=== PATIENT | female | born 1960 | race Two or more races ===

== ENCOUNTER 2016-10-16 21:11 | Emergency (ER) | payer OTHER ==
[2016-10-16] MEDS ORDERED: ALBUTEROL SO4 0.083% IH SOL 2.5 MG/3 ML VIAL.NEB. NEB ONE (21:24)
[2016-10-16 21:25] VITALS: BP 152/80; PULSE 84; TEMP 98.3; BMI 39.1
[2016-10-16] MEDS ORDERED: predniSONE 20 MG TABLET (UD) PO ONE (21:36)
--- NOTE | 2016-10-16 21:41 | PDOC ---
History of Present Illness - General Chief Complaint: Cold Symptoms Stated Complaint: SHORTNESS OF BREATH Time Seen by Provider: 10/16/16 21:21 History Source: Patient - History of Present Illness Timing/Duration: reports: other Associated Symptoms: reports: cough, shortness of breath, wheezing Past History - Past Medical History Allergies/Adverse Reactions: Allergies Allergy/AdvReac Type Severity Reaction Status Date / Time latex Allergy Severe Rash Verified 10/16/16 21:23 Home Medications: Ambulatory Orders Escitalopram Oxalate [Lexapro -] 20 mg PO HS 09/05/11 Montelukast Sodium [Singulair] 10 mg PO DAILY 09/05/11 Amlodipine Besylate [Norvasc -] 10 mg PO DAILY 11/06/13 Losartan Potassium 50 mg PO DAILY 11/06/13 Levothyroxine [Synthroid -] 200 mcg PO DAILY 09/29/15 Acetaminophen [Tylenol .Regular Strength -] 650 mg PO Q4H PRN #0 tablet Diphenhydramine HCl [Benadryl Capsule -] 25 mg PO Q6H PRN #0 capsule 01/26/16 Ibuprofen [Motrin -] 800 mg PO Q8H PRN #180 tablet 01/26/16 Levothyroxine [Synthroid -] 25 mcg PO DAILY@0700 #30 tablet 01/26/16 Levothyroxine [Synthroid -] 200 mcg PO DAILY@0700 #30 tablet 01/26/16 Prednisone [Deltasone -] 40 mg PO DAILY #8 tablet 10/16/16 Anemia: Yes Asthma: Yes Cancer: (thyroid) Cardiac Disorders: No CVA: No CHF: No Dementia: No Diabetes: No GI Disorders: Yes (REFLUX RESOLVED 8 YRS AGO) Disorders: No HTN: Yes Hypercholesterolemia: No Liver Disease: No Seizures: No Thyroid Disease: Yes (THYROIDECTOMY) - Surgical History Cholecystectomy: Yes (11/30/2015) - Immunization History Immunization Up to Date: Yes () - Psycho/Social/Smoking Cessation Hx Anxiety: No Suicidal Ideation: No Smoking Status: No Smoking History: Never smoked Have you smoked in the past 12 months: No Number of Cigarettes Smoked Daily: 0 Hx Alcohol Use: No Drug/Substance Use Hx: No Substance Use Type: Alcohol Review of Systems - Review of Systems Constitutional: No: Fever Respiratory: Yes: Cough, Shortness of Breath, Wheezing *Physical Exam - Vital Signs Last Vital Signs Temp Pulse Resp BP Pulse Ox 98.3 F 84 18 152/80 94 L 10/16/16 21:23 10/16/16 21:23 10/16/16 21:23 10/16/16 21:23 10/16/16 21:23 - Physical Exam General Appearance: Yes: Appropriately Dressed. No: Apparent Distress HEENT: positive: Normal Voice Neck: positive: Supple. negative: Lymphadenopathy (R), Lymphadenopathy (L) Respiratory/Chest: positive: Wheezing Cardiovascular: positive: Regular Rate, S1, S2 Extremity: positive: Normal Inspection Integumentary: positive: Dry, Warm Neurologic: positive: Fully Oriented, Alert, Normal Mood/Affect Medical Decision Making - Medical Decision Making 10/16/16 21:38 56-year-old female, history of HTN and asthma with no recent admissions and no history of intubations, on advair, albuterol pump and nebulizer machine at home , presenting with non-productive cough with subjective fevers and body aches that started 5 days ago and at some point, developed shortness of breath and chest tightness similar to her asthma. No h/o PNA see exam Asthma flare Sating 94% on RA w/ audible wheezing at triage as per RME notes -nebs until improves -pred -cxr r/o pna 10/16/16 21:55 10/16/16 22:25 CXR negative. Nebs in progress. Flu swab pending 10/16/16 23:17 Flu swab negative. Patient improved with nebs w/ clear chest/lungs on reassessment. Patient able to ambulate without shortness of breath. Repeat saturation done by me and was 97% on room air. Dc with Pred burst and PMD follow-up as needed *DC/Admit/Observation/Transfer Diagnosis at time of Disposition: Asthma flare - Discharge Dispostion Disposition: HOME Condition at time of disposition: Improved - Prescriptions Prescriptions: Prednisone [Deltasone -] 40 mg PO DAILY #8 tablet - Referrals Referrals: Shabana Ahmadi MD [Primary Care Provider] - - Patient Instructions Printed Discharge Instructions: Asthma -- Adult, DI for Viral Upper Respiratory Infection -- Adult Additional Instructions: Take medications as directed and follow up with your PMD as needed
[2016-10-16] MEDS ORDERED: predniSONE 20 MG TABLET (UD) ONE (21:54)
[2016-10-16] MEDS ORDERED: IBUPROFEN 400 MG TABLET (FP) PO ONE ×2 (21:55)
[2016-10-16] MEDS ORDERED: ALBUTEROL SO4 2.5/IPRATROPIUM 0.5 INH SOL 3 ML VIAL.NEB. NEB ONE (21:55)
== END 2016-10-16 23:11 | disposition home or self-care (01) ==
LOC: JERFT 21:11
PROC: 3E0F7GC Introduction of Other Therapeutic Substance into Respiratory Tract, Via Natural or Artificial Opening (ICD-10-PCS; principal; 2016-10-16)
DX: J45.901 Unspecified asthma with (acute) exacerbation (principal); I10 Essential (primary) hypertension
CPT/HCPCS: 71020-TC; 87804; 94640; 99281-25

== ENCOUNTER 2017-10-14 13:51 | Emergency (ER) | payer OTHER ==
[2017-10-14 14:10] VITALS: BP 150/83; PULSE 63; TEMP 98.3; BMI 41.1
[2017-10-14] MEDS ORDERED: KETOROLAC TROMETHAMINE 60 MG/2 ML VIAL IM ONE (15:02)
[2017-10-14] MEDS ORDERED: traMADol HCL 50 MG TABLET PO ONE (15:02)
[2017-10-14] MEDS ORDERED: KETOROLAC TROMETHAMINE 60 MG/2 ML VIAL ONE (15:03)
[2017-10-14] MEDS ORDERED: traMADol HCL 50 MG TABLET ONE (15:03)
--- NOTE | 2017-10-14 15:03 | PDOC ---
History of Present Illness - General Chief Complaint: Back Pain Stated Complaint: BACK PAIN Time Seen by Provider: 10/14/17 14:12 History Source: Patient - History of Present Illness Occurred: reports: yesterday Pain Location: reports: back Past History - Past Medical History Allergies/Adverse Reactions: Allergies Allergy/AdvReac Type Severity Reaction Status Date / Time latex Allergy Severe Rash Verified 10/14/17 14:06 Home Medications: Ambulatory Orders Escitalopram Oxalate [Lexapro -] 20 mg PO HS 09/05/11 Montelukast Sodium [Singulair] 10 mg PO DAILY 09/05/11 Amlodipine Besylate [Norvasc -] 10 mg PO DAILY 11/06/13 Losartan Potassium 50 mg PO DAILY 11/06/13 Levothyroxine [Synthroid -] 200 mcg PO DAILY 09/29/15 Acetaminophen [Tylenol .Regular Strength -] 650 mg PO Q4H PRN #0 tablet Diphenhydramine HCl [Benadryl Capsule -] 25 mg PO Q6H PRN #0 capsule 01/26/16 Ibuprofen [Motrin -] 800 mg PO Q8H PRN #180 tablet 01/26/16 Levothyroxine [Synthroid -] 25 mcg PO DAILY@0700 #30 tablet 01/26/16 Levothyroxine [Synthroid -] 200 mcg PO DAILY@0700 #30 tablet 01/26/16 predniSONE [Deltasone -] 40 mg PO DAILY #8 tablet 10/16/16 Ibuprofen [Motrin -] 600 mg PO QID #28 tablet 10/14/17 Tramadol HCl 50 mg PO Q6H #12 tablet MDD 200mg 10/14/17 Anemia: Yes Asthma: Yes Cancer: (thyroid) Cardiac Disorders: No CVA: No COPD: No CHF: No Dementia: No Diabetes: No GI Disorders: Yes (REFLUX RESOLVED 8 YRS AGO) Disorders: No HTN: Yes Hypercholesterolemia: No Liver Disease: No Seizures: No Thyroid Disease: Yes (THYROIDECTOMY) - Surgical History Cholecystectomy: Yes (11/30/2015) - Immunization History Immunization Up to Date: Yes () - Suicide/Smoking/Psychosocial Hx Smoking Status: No Smoking History: Never smoked Have you smoked in the past 12 months: No Number of Cigarettes Smoked Daily: 0 Information on smoking cessation initiated: No Hx Alcohol Use: No Drug/Substance Use Hx: No Substance Use Type: Alcohol Review of Systems - Review of Systems Constitutional: No: Chills, Fever, Unexplained wgt Loss ABD/GI: No: Nausea, Vomiting, Abdominal cramping : No: Dysuria, Hematuria Musculoskeletal: Yes: Back Pain. No: Muscle Weakness Neurological: No: Numbness, Tingling, Weakness *Physical Exam - Vital Signs Last Vital Signs Temp Pulse Resp BP Pulse Ox 98.3 F 63 12 150/83 100 10/14/17 14:07 10/14/17 14:07 10/14/17 14:07 10/14/17 14:07 10/14/17 14:07 - Physical Exam General Appearance: Yes: Appropriately Dressed, Mild Distress HEENT: positive: Normal Voice Neck: negative: Supple Respiratory/Chest: negative: Respiratory Distress Gastrointestinal/Abdominal: positive: Soft. negative: Tender Musculoskeletal: positive: Vertebral Tenderness (to R lower back). 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 S/p PT in the past per pt. No dysuria, n/v/f/c See exam Recurrent back pain DJD on MRI 2017 No red flags -Dc w/ pain control and PMD f/u *DC/Admit/Observation/Transfer Diagnosis at time of Disposition: Low back pain Qualifiers: Chronicity: acute Back pain laterality: right Sciatica presence: without sciatica Qualified Code(s): M54.5 - Low back pain - Discharge Dispostion Disposition: HOME Condition at time of disposition: Improved - Prescriptions Prescriptions: Ibuprofen [Motrin -] 600 mg PO QID #28 tablet Tramadol HCl 50 mg PO Q6H #12 tablet MDD 200mg - Referrals - Patient Instructions Printed Discharge Instructions: DI for Low Back Pain Additional Instructions: Continue to take medication as directed and follow-up with your PMD - Post Discharge Activity
== END 2017-10-14 15:27 | disposition home or self-care (01) ==
LOC: JERFT 13:51
PROC: 3E0233Z Introduction of Anti-inflammatory into Muscle, Percutaneous Approach (ICD-10-PCS; principal; 2017-10-14)
DX: M54.5 Low back pain (principal); I10 Essential (primary) hypertension; D64.9 Anemia, unspecified; J45.909 Unspecified asthma, uncomplicated; Z85.850 Personal history of malignant neoplasm of thyroid; E89.0 Postprocedural hypothyroidism
CPT/HCPCS: 96372; 99281-25

== ENCOUNTER 2018-01-25 03:42 | Emergency (ER) | payer OTHER ==
[2018-01-25 04:59] VITALS: BP 155/81; PULSE 87; TEMP 98.4; BMI 39.3
[2018-01-25] MEDS ORDERED: IBUPROFEN 400 MG TABLET (FP) PO ONE ×2 (05:17→06:05)
--- NOTE | 2018-01-25 05:54 | PDOC ---
History of Present Illness - General Stated Complaint: RIGHT ANKLE SPRAIN Time Seen by Provider: 01/25/18 04:33 History Source: Patient Exam Limitations: No Limitations - History of Present Illness Initial Comments: 01/25/18 05:56 Best Contact: PCP:Dr. Ahmadi Pmhx: Hypertension, depression, asthma: No history of intubation a recent admission Pshx: Laparoscopic cholecystectomy Allergies: NKDA FH: N/A Social Hx: Cigarettes/ 0 Alcohol/ 0 Drugs/0 LMP:N/A 57-year-old female presents to the ER complaining of right ankle pain. Patient states at all to 17 hours this morning, she was walking down one step when she inverted her right ankle causing 8/10 sharp constant discomfort on movement but minimally alleviated at rest. Patient denies any head injuries, neck/back pains , chest pain, shortness of breath, extremity numbness or tingling sensation. Patient denies any other complaints. 01/25/18 06:05 PROCEDURE NOTE Sugar tong to the right lower extremity Posterior splint to the right lower leg Past History - Past Medical History Allergies/Adverse Reactions: Allergies Allergy/AdvReac Type Severity Reaction Status Date / Time latex Allergy Severe Rash Verified 01/25/18 05:00 Home Medications: Ambulatory Orders Escitalopram Oxalate [Lexapro -] 20 mg PO HS 09/05/11 Montelukast Sodium [Singulair] 10 mg PO DAILY 09/05/11 Amlodipine Besylate [Norvasc -] 10 mg PO DAILY 11/06/13 Losartan Potassium 50 mg PO DAILY 11/06/13 Levothyroxine [Synthroid -] 200 mcg PO DAILY 09/29/15 Acetaminophen [Tylenol .Regular Strength -] 650 mg PO Q4H PRN #0 tablet Diphenhydramine HCl [Benadryl Capsule -] 25 mg PO Q6H PRN #0 capsule 01/26/16 Ibuprofen [Motrin -] 800 mg PO Q8H PRN #180 tablet 01/26/16 Levothyroxine [Synthroid -] 25 mcg PO DAILY@0700 #30 tablet 01/26/16 Levothyroxine [Synthroid -] 200 mcg PO DAILY@0700 #30 tablet 01/26/16 predniSONE [Deltasone -] 40 mg PO DAILY #8 tablet 10/16/16 Ibuprofen [Motrin -] 600 mg PO QID #28 tablet 10/14/17 Tramadol HCl 50 mg PO Q6H #12 tablet MDD 200mg 10/14/17 Anemia: Yes Asthma: Yes Cancer: (thyroid) Cardiac Disorders: No CVA: No COPD: No CHF: No Dementia: No Diabetes: No GI Disorders: Yes (REFLUX RESOLVED 8 YRS AGO) Disorders: No HTN: Yes Hypercholesterolemia: No Liver Disease: No Seizures: No Thyroid Disease: Yes (THYROIDECTOMY) - Surgical History Cholecystectomy: Yes (11/30/2015) - Immunization History Immunization Up to Date: Yes () - Suicide/Smoking/Psychosocial Hx Smoking Status: No Smoking History: Never smoked Have you smoked in the past 12 months: No Number of Cigarettes Smoked Daily: 0 Information on smoking cessation initiated: No Hx Alcohol Use: No Drug/Substance Use Hx: No Substance Use Type: Alcohol Review of Systems - Review of Systems Able to Perform ROS?: Yes Comments:: 01/25/18 06:02 CONSTITUTIONAL: Absent: fever, chills, diaphoresis, generalized weakness, malaise, loss of appetite HEENT: Absent: rhinorrhea, nasal congestion, throat pain, throat swelling, difficulty swallowing, mouth swelling, ear pain, eye pain, visual Changes CARDIOVASCULAR: Absent: chest pain, loss of consciousness, palpitations, irregular heart rate, peripheral edema RESPIRATORY: Absent: cough, shortness of breath, dyspnea with exertion, orthopnea, wheezing, stridor, hemoptysis GASTROINTESTINAL: Absent: abdominal pain, abdominal distension, nausea, vomiting, diarrhea, constipation, melena, hematochezia GENITOURINARY: Absent: dysuria, frequency, urgency, hesitancy, hematuria, flank pain, genital pain MUSCULOSKELETAL: Absent: myalgia, arthralgia, joint swelling SKIN: Absent: rash, itching, pallor Right ankle +Pain/swelling Neg knee pain 01/25/18 06:03 Is the patient limited Uzbek proficient: No *Physical Exam - Vital Signs Last Vital Signs Temp Pulse Resp BP Pulse Ox 98.4 F 87 19 155/81 97 01/25/18 04:00 01/25/18 04:00 01/25/18 04:00 01/25/18 04:00 01/25/18 04:00 - Physical Exam Comments: 01/25/18 06:02 GENERAL: Well developed, well nourished. Awake and alert. No acute distress. HEENT: Normocephalic, atraumatic. PERRLA, EOMI. No conjunctival pallor. Sclera are non- icteric. Moist mucous membranes. Oropharynx is clear. NECK: Supple. Full ROM. No JVD. Carotid pulses 2+ and symmetric, without bruits. No thyromegaly. No lymphadenopathy. CARDIOVASCULAR: Regular rate and rhythm. No murmurs, rubs, or gallops. Distal pulses are 2+ and symmetric. PULMONARY: No evidence of respiratory distress. Lungs clear to auscultation bilaterally. No wheezing, rales or rhonchi. ABDOMINAL: Soft. Non-tender. Non-distended. No rebound or guarding. No organomegaly. Normoactive bowel sounds. MUSCULOSKELETAL Normal range of motion at all joints. No bony deformities or tenderness. No CVA tenderness. EXTREMITIES: No cyanosis. No clubbing. No edema. No calf tenderness. SKIN: Warm and dry. Normal capillary refill. No rashes. No jaundice. Right ankle 2+DP pulse + swelling achilles intact Right foot 2+ pedal pulse Negative pain to the base of the fifth metatarsal Right knee Full range of motion Negative pain on palpation ED Treatment Course - RADIOLOGY Radiology Studies Ordered: Category Date Time Status ANKLE-RIGHT [RAD] Stat Radiology 01/25/18 04:37 Taken *DC/Admit/Observation/Transfer Diagnosis at time of Disposition: Ankle fracture Qualifiers: Encounter type: initial encounter Fracture type: closed Laterality: right Qualified Code(s): S82.891A - Other fracture of right lower leg, initial encounter for closed fracture - Discharge Dispostion Disposition: HOME Condition at time of disposition: Fair Decision to Admit order: No - Referrals Referrals: Shabana Ahmadi MD [Primary Care Provider] - Michelet Acevedo MD [Staff Physician] - - Patient Instructions Printed Discharge Instructions: DI for Ankle Fracture Additional Instructions: Ice; 20 mins on alternating with 20 mins off for 48 hours while awake. Rest Elevate Follow up with your orthopedic surgeon or the one listed on the discharge form. Return to the ER for severe/persistent/worsening symptoms, extremity numbness/ tingling sensation. You have to see Dr. Acevedo on Saturday. Explained to the office that the emergency Department spoke to the MARLON Dias. It is very important that you keep your right leg elevated - Post Discharge Activity Progress Note - Progress Note Progress Note: 0604hrs: Called DR. Danielle/registration specialist Ortho [phone] 0605hrs: MARLON Dias called back. I explained to him that the mortise is disrupted with a distal fibula fracture on the right. He states to have the patient see Dr. Acevedo on Saturday morning for surgery consultation
== END 2018-01-25 06:47 | disposition home or self-care (01) ==
LOC: JER 03:42
PROC: 2W3QX1Z Immobilization of Right Lower Leg using Splint (ICD-10-PCS; principal; 2018-01-25)
DX: S82.891A Other fracture of right lower leg, initial encounter for closed fracture (principal); W10.9XXA Fall (on) (from) unspecified stairs and steps, initial encounter; Y93.89 Activity, other specified; Y92.9 Unspecified place or not applicable
CPT/HCPCS: 73610-TC-RT-FY; 99281-25; 99282-25

== ENCOUNTER 2018-02-06 09:04 | Day surgery (SDC) | payer OTHER ==
[2018-02-03 15:39] VITALS: BMI 39.1
[2018-02-06] MEDS ORDERED: PROPOFOL 20 ML ONE (12:34)
[2018-02-06] MEDS ORDERED: DEXAMETHASONE SOD PHOSPHATE/PF 10 MG/ML SDV ONE (12:39)
[2018-02-06] MEDS ORDERED: MIDAZOLAM HCL 2 MG/2 ML SINGLE DOSE VIAL ONE (12:39)
[2018-02-06] MEDS ORDERED: BUPIVACAINE HCL/PF (5 MG/ML) 30 ML VIAL IJ ONE (12:39)
[2018-02-06] MEDS ORDERED: LIDOCAINE HCL/PF 2% SDV 5ML VIAL ONE (13:06)
[2018-02-06] MEDS ORDERED: ceFAZolin SODIUM 1 GM VIAL ONE (13:20)
--- NOTE | 2018-02-06 15:39 | OP ---
Operative Note - Note: Operative Date: 02/06/18 Pre-Operative Diagnosis: R ankle fracture / syndesmosis rupture Operation: right ankle ORIF. right syndesmosis ORIF Implants: arthrex distal fibular plate. tight rope. 2.7mm and 3.5mm screws Post-Operative Diagnosis: Same as Pre-op Surgeon: Michelet Acevedo Surveyor Rod Helper: Ceasar Dias Anesthesia: Fractional Estimated Blood Loss (mls): 75 Operative Report Dictated: Yes
[2018-02-06] MEDS ORDERED: oxyCODONE HCL 5 MG TABLET PO PRN (15:43)
[2018-02-06] MEDS ORDERED: ONDANSETRON 4 MG/2 ML VIAL IVPUSH PRN (15:43)
[2018-02-06] MEDS ORDERED: LACTATED RINGERS SOLUTION 1,000 ML IV SCH (15:45)
--- NOTE | 2018-02-06 16:08 | OP ---
DATE OF OPERATION: 02/06/2018 PREOPERATIVE DIAGNOSIS: Right unstable ankle fracture. POSTOPERATIVE DIAGNOSES: 1. Right unstable ankle fracture. 2. Syndesmotic injury. PROCEDURE: Right ankle and syndesmosis open reduction and internal fixation. SURGEON: Michelet Acevedo MD UTILITY ENGINEER: MARLON Kapoor, whose skillful assistance was necessary for the safe and timely performance of this procedure. Mr. Dias was able to help provide limb positioning, retraction, assistance in fracture reduction as well as the insertion of orthopedic fixation hardware. ANESTHESIA: Regional plus spinal. POSTOPERATIVE CONDITION: Stable. COMPLICATIONS: None. IMPLANTS: Arthrex distal fibular plate with 2.7-mm and 3.5-mm screws, plus 1 Arthrex TightRope. INDICATIONS: This is a pleasant, 57-year-old female who suffered a right ankle fracture. X-rays demonstrated instability and widening of the mortise. Treatment was recommended with operative care. The alternative of nonoperative care was reviewed as well. This can result in posttraumatic instability and arthrosis. We reviewed operative risks in detail including bleeding, infection, neurovascular injury, need for further surgery, postoperative pain and stiffness, nonunion, malunion, hardware failure, cutoff. I discussed medical risks such as heart attack, stroke, DVT, PE, and . I reviewed the postoperative rehabilitation protocol. We discussed the use of perioperative antibiotic and DVT prophylaxis. I addressed the patient's questions and concerns. She voiced understanding and elected to proceed. DESCRIPTION OF PROCEDURE: Patient was brought to the operating room after administration of a regional block in the preoperative holding area. The right lower extremity was prepped and draped in the usual sterile fashion after administration of spinal anesthesia. The incision was marked out on the skin. The usual timeout procedure was performed, and a preoperative dose of antibiotics was given. The limb was now exsanguinated, and tourniquet was inflated to 250 mmHg. The incision was now made, carried down through the skin to bone over the most-distal aspect of the fibula and more superficially proximally to avoid injury to the superficial peroneal nerve. The tissue was then bluntly spread to expose the fracture site. The fracture was then debrided of any loose debris utilizing a curette as well as irrigation. The fracture reduction forceps was now placed, and the fracture was brought into anatomic alignment. Initially, the fracture was fixed with an [id number]-vieqwmuol 2.7-mm lag screw. A neutralization plate was chosen and affixed to the bone utilizing one 3.5 screw proximally and one 2.7 screw distally. Fluoroscopy was now used to verify both fracture reduction and hardware placement were satisfactory. Both were. Two additional proximal 3.5 screws were placed. Three additional distal 2.7 screws were placed. The ankle was now placed through an external rotation stress test, and the mortise was found to be wide. The 2.7 lag screw was removed as it was in the way of the TightRope device. The 3.7 drill hole was now made parallel to the mortise. The TightRope device was passed and then tightened into place. Repeat stress test was performed, demonstrating no widening at this time. There was 1 additional fragment which was now addressed. There was a fragment anterior on the distal fibula with the ATiFL attachment. This fragment was now reduced using a reduction clamp. A 2.7 screw was drilled and then inserted, securing this fragment in place. At this point, the entire construct was examined both visually and fluoroscopically. Both fracture reduction and hardware placement were satisfactory. The wound was copiously irrigated. The deep tissue was approximated using 0 Vicryl. The subcutaneous tissue was approximated using 2-0 Vicryl. The skin was closed using 3-0 nylon. Sterile dressings were placed. Patient was placed into a well-padded short-leg cast. She was transferred to recovery room in stable condition. Sangeetha BASHIR/[id number]
[2018-02-06 17:46] VITALS: BP 153/79; PULSE 62; TEMP 98.2
== END 2018-02-06 17:46 | disposition home or self-care (01) ==
LOC: FASU 09:04
PROVIDERS: ATTEND Orthopaedic Surgery Sports Medicine
PROC: 0SSF0ZZ Reposition Right Ankle Joint, Open Approach (ICD-10-PCS; 2018-02-06)
PROC: 0QSJ04Z Reposition Right Fibula with Internal Fixation Device, Open Approach (ICD-10-PCS; principal; 2018-02-06 13:32)
DX: S82.61XA Displaced fracture of lateral malleolus of right fibula, initial encounter for closed fracture (principal); S93.431A Sprain of tibiofibular ligament of right ankle, initial encounter; X58.XXXA Exposure to other specified factors, initial encounter; Y93.9 Activity, unspecified; Y92.9 Unspecified place or not applicable
CPT/HCPCS: 73610-TC-RT-FY; 94760

== ENCOUNTER 2018-07-27 21:57 | Emergency (ER) | payer OTHER ==
[2018-07-27 22:04] VITALS: BP 150/75; PULSE 94; TEMP 98.8; BMI 39.6
[2018-07-27] MEDS ORDERED: ALBUTEROL SO4 2.5/IPRATROPIUM 0.5 INH SOL 3 ML VIAL.NEB. NEB ONE ×2 (22:39→22:41)
--- NOTE | 2018-07-27 22:47 | PDOC ---
History of Present Illness - General Chief Complaint: Respiratory Stated Complaint: cough Time Seen by Provider: 07/27/18 22:31 History Source: Patient Exam Limitations: No Limitations Past History - Past Medical History Allergies/Adverse Reactions: Allergies Allergy/AdvReac Type Severity Reaction Status Date / Time latex Allergy Severe Rash Verified 07/27/18 22:04 Home Medications: Ambulatory Orders Escitalopram Oxalate [Lexapro -] 20 mg PO HS 09/05/11 Montelukast Sodium [Singulair] 10 mg PO DAILY 09/05/11 Amlodipine Besylate [Norvasc -] 10 mg PO DAILY 11/06/13 Losartan Potassium 50 mg PO DAILY 11/06/13 Levothyroxine [Synthroid -] 200 mcg PO DAILY 09/29/15 Albuterol Sulfate Inhaler - [Ventolin Hfa Inhaler -] 1 - 2 inh PO Q4H PRN Benzonatate [Tessalon Pearls -] 100 mg PO TID #21 capsule 07/27/18 Salmeterol/Fluticasone [Advair 100Mcg/50Mcg -] 1 inh IH ASDIR 07/27/18 Anemia: Yes Asthma: Yes Cancer: Yes (thyroid) Cardiac Disorders: No CVA: No COPD: No CHF: No Dementia: No Diabetes: No GI Disorders: Yes (REFLUX RESOLVED 8 YRS AGO) Disorders: No HTN: Yes Hypercholesterolemia: No Liver Disease: No Seizures: No Thyroid Disease: Yes (THYROIDECTOMY) - Surgical History Appendectomy: No Cardiac Surgery: No Cholecystectomy: Yes (11/30/2015) Lung Surgery: No Neurologic Surgery: No Orthopedic Surgery: No - Immunization History Immunization Up to Date: Yes () - Suicide/Smoking/Psychosocial Hx Smoking Status: No Smoking History: Never smoked Have you smoked in the past 12 months: No Number of Cigarettes Smoked Daily: 0 Information on smoking cessation initiated: No Hx Alcohol Use: No Drug/Substance Use Hx: No Substance Use Type: None *Physical Exam - Vital Signs Last Vital Signs Temp Pulse Resp BP Pulse Ox 98.8 F 94 H 20 150/75 97 07/27/18 22:00 07/27/18 22:00 07/27/18 22:00 07/27/18 22:00 07/27/18 22:00 - Physical Exam General Appearance: No: Apparent Distress HEENT: positive: AMAN, Normal ENT Inspection, Nasal Congestion. negative: Muffled/Hoarse voice, Pharyngeal Erythema, Tonsillar Exudate, Tonsillar Erythema , Rhinorrhea, Sinus Tenderness, TM Bulging, TM Erythema, Excessive drooling, Thrush Respiratory/Chest: positive: Lungs Clear, Normal Breath Sounds. negative: Respiratory Distress, Rhonchi, Stridor, Wheezing Cardiovascular: positive: Regular Rhythm, Regular Rate, S1, S2. negative: Murmur Extremity: negative: Pedal Edema, Swelling Integumentary: positive: Normal Color Neurologic: positive: Fully Oriented, Alert, Normal Mood/Affect Moderate Sedation - Procedure Monitoring Vital Signs: Procedure Monitoring Vital Signs Temperature 98.8 F 07/27/18 22:00 Pulse Rate 94 H 07/27/18 22:00 Respiratory Rate 20 07/27/18 22:00 Blood Pressure 150/75 07/27/18 22:00 O2 Sat by Pulse Oximetry (%) 97 07/27/18 22:00 Medical Decision Making - Medical Decision Making 58 y/o F hx of asthma, hypothyroidism, HTN presents with dry cough x 1 week along with dry throat, R ear pain, ABAD, nasal congestion, watery eyes, sore throat. Has been using Mucinex which helped with sxs but at night her sxs get worse. Mentions she gets SOB at times due to excessive coughing. Denies fever, chest pain, abd pain, n/v/d. Patient is not on HELENA inhibitors for HTN. Could possibly be mild asthma though no wheezing noted Unlikely PNA with no fever, no rales in lungs and dry cough Will give trial of duoneb to see if it helps with symptoms 07/27/18 22:43 No change with nebs Likely viral URI Advised to use humidifier at night along with Mucinex as needed 07/27/18 22:55 *DC/Admit/Observation/Transfer Diagnosis at time of Disposition: Viral syndrome - Discharge Dispostion Disposition: HOME Condition at time of disposition: Good Decision to Admit order: No - Prescriptions Prescriptions: Benzonatate [Tessalon Pearls -] 100 mg PO TID #21 capsule - Referrals Referrals: Shabana Ahmadi MD [Primary Care Provider] - 3 days - Patient Instructions Additional Instructions: Thank you for choosing [facility]. It was a pleasure taking care of you. You may likely have viral syndrome Continue Mucinex as needed if it was helping with your cough Use Tessalon Perles as prescribed Recommend using a humidifier at night Return to the Emergency Department if your symptoms worsen or persist, you have fever, shortness of breath, chest pain, cough up blood, unusual rash or other concerning symptoms. - Post Discharge Activity
== END 2018-07-27 23:03 | disposition home or self-care (01) ==
LOC: JERFT 21:57 → JER 21:57 → JERFT 23:03
PROC: 3E0F7GC Introduction of Other Therapeutic Substance into Respiratory Tract, Via Natural or Artificial Opening (ICD-10-PCS; principal; 2018-07-27)
DX: B34.9 Viral infection, unspecified (principal); E03.9 Hypothyroidism, unspecified; I10 Essential (primary) hypertension
CPT/HCPCS: 94640; 99281-25

== ENCOUNTER 2019-01-08 07:31 | Day surgery (SDC) | payer OTHER ==
[2018-12-30 11:45] VITALS: BMI 41.1
[2019-01-08] MEDS ORDERED: BUPIVACAINE HCL/PF 0.5% (5MG/ML) 10 ML VIAL ONE (09:15)
[2019-01-08] MEDS ORDERED: MIDAZOLAM HCL 2 MG/2 ML SINGLE DOSE VIAL ONE ×2 (09:17)
--- NOTE | 2019-01-08 09:23 | OP ---
Operative Note - Note: Operative Date: 01/08/19 Pre-Operative Diagnosis: Right knee medial meniscus tear Operation: Right knee arthroscopy with partial medial meniscectomy with microfracture Post-Operative Diagnosis: Same as Pre-op Surgeon: Michelet Acevedo Sharemilker: Lillian Ram Anesthesiologist/SPECIALIST FIELD ENGINEER: Man Kinsey Anesthesia: Spinal Operative Report Dictated: Yes
[2019-01-08] MEDS ORDERED: ceFAZolin SODIUM 1 GM VIAL ONE (09:42)
[2019-01-08] MEDS ORDERED: ONDANSETRON 4 MG/2 ML VIAL ONE (10:25)
[2019-01-08] MEDS ORDERED: DEXAMETHASONE SOD PHOSPHATE 4 MG/1 ML VIAL ONE (10:25)
[2019-01-08] MEDS ORDERED: KETOROLAC TROMETHAMINE 30 MG/1 ML VIAL ONE (10:26)
[2019-01-08] MEDS ORDERED: oxyCODONE HCL 5 MG TABLET PO PRN (10:36)
[2019-01-08] MEDS ORDERED: ONDANSETRON 4 MG/2 ML VIAL IVPUSH PRN (10:36)
[2019-01-08] MEDS ORDERED: LACTATED RINGERS SOLUTION 1,000 ML IV SCH (10:45)
--- NOTE | 2019-01-08 11:15 | OP ---
DATE OF OPERATION: 01/08/2019 PREOPERATIVE DIAGNOSIS: Right knee medial meniscal tear, osteoarthritis. POSTOPERATIVE DIAGNOSIS: Right knee medial meniscal tear, osteoarthritis. PROCEDURE: Right knee arthroscopy with partial medial meniscectomy, medial femoral condyle microfracture. SURGEON: Davina Pina MD BLOW MACHINE TENDER STARCH SPRAYING: MARLON Zamora ANESTHESIA: Spinal. POSTOPERATIVE CONDITION: Stable. COMPLICATIONS: None. BLOOD LOSS: Minimal. INDICATIONS: This is a pleasant 58-year-old female who has been suffering from medial knee pain. MRI demonstrated a medial meniscal tear. Treatment options, including nonoperative versus operative measures, were reviewed. Operative risks were reviewed in detail including bleeding, infection, neurovascular injury, need for further surgery, postoperative pain, and stiffness, progressive osteoarthritis. We discussed medical risks such as heart attack, stroke, DVT, PE, and . I addressed the use of perioperative antibiotic and DVT prophylaxis. I took all the patient's questions and concerns. She voiced understanding and elected to proceed. DESCRIPTION OF PROCEDURE: The patient was brought to the operating room where spinal anesthesia was administered. The right lower extremity was then prepped and draped in the usual sterile fashion. A preoperative dose of antibiotics was given, and the usual timeout procedure was performed. The right lower extremity demonstrated positive effusion, full range of motion, and good stability. The portal sites were now marked out on the skin. The portals were injected subcutaneously with 0.25% Marcaine. An 11 blade was now used to establish the lateral portal. The arthroscope was passed into the knee. Examination of the patellofemoral joint demonstrated moderate partial thickness chondral loss along the patellar and trochlear surfaces. Passing the arthroscope into the notch demonstrated synovitis along with intact ACL and PCL. The arthroscope was now passed into the medial compartment. Here, a small area of full-thickness chondral loss was noted along the medial femoral condyle. There was more diffuse partial thickness chondral loss. The medial meniscus seemed to be tore at his posterior horn. Medial portal was established under spinal needle localizing combination of meniscal biters and fernanda and debrided down to a stable base. The arthroscope was passed to the lateral compartment. Here, no meniscal lesions were noted. Only mild superficial wear of the articular surface was noted above. The meniscus was probed and found to be stable. The arthroscope was now passed back medially. Here, given the full thickness area was a relatively small area with loose chondral flaps around it, it was felt that microfracture would be of benefit to the patient. Utilizing a 0.062 K-wire, multiple passes were made on the area of full cartilage loss which was approximately 4 x 4 mm. Marrow was seen to extravasate from the joint. The excess fluid was now withdrawn from the joint. The portals were sutured using 3-0 nylon. Sterile dressings were placed. The patient was transferred to recovery room in stable condition. In addition, it should be noted that prior to the case, the patient did have pending medical clearance with pulmonary consultation. She did not go for the pulmonary consultation. I discussed the case with Dr. Ahmadi, the patient's primary care doctor, as well as with the patient. It was felt that should she require general anesthetic that it would not be possible to proceed. Given that the case could be performed under spinal anesthetic, it was felt that this would be a safe way to proceed as this should not affect the cardiopulmonary system at all. We did discuss that if spinal anesthetic was not possible that the case would have to be canceled. Patient voiced understanding and did elect to proceed with the case. DAVINA PINA M.D. [id number]
[2019-01-08 12:25] VITALS: PULSE 60; TEMP 97.5
[2019-01-08 14:21] VITALS: BP 126/72
== END 2019-01-08 13:50 | disposition home or self-care (01) ==
LOC: FASU 07:31
PROVIDERS: ATTEND Orthopaedic Surgery Sports Medicine
PROC: 0SQC4ZZ Repair Right Knee Joint, Percutaneous Endoscopic Approach (ICD-10-PCS; 2019-01-08)
PROC: 0SBC4ZZ Excision of Right Knee Joint, Percutaneous Endoscopic Approach (ICD-10-PCS; principal; 2019-01-08 09:54)
DX: S83.241A Other tear of medial meniscus, current injury, right knee, initial encounter (principal); M17.11 Unilateral primary osteoarthritis, right knee; X58.XXXA Exposure to other specified factors, initial encounter; Y93.9 Activity, unspecified; Y92.9 Unspecified place or not applicable
CPT/HCPCS: 94760

== ENCOUNTER 2019-03-14 18:55 | Emergency (ER) | payer OTHER ==
[2019-03-14 19:00] VITALS: BP 133/99; PULSE 88; TEMP 98.6; BMI 41.1
--- NOTE | 2019-03-14 19:14 | PDOC ---
History of Present Illness - General Chief Complaint: Injury Stated Complaint: FALL Time Seen by Provider: 03/14/19 19:02 History Source: Patient Exam Limitations: Clinical Condition - History of Present Illness Initial Comments: 03/14/19 20:02 Morbid obese patient with history of right knee arthroscopy 2 months ago and right ankle fracture repair 2 years ago present with complaint of right ankle pain and swelling with pain to anterior right knee status post slip on the wet floor and fall in the right side of her ankle and knee. Patient reported increased pain to right ankle and knee with ambulation. Denies hitting head or loss of consciousness. Denies any other symptoms. Patient have a follow-up appointment with orthopedics in 2 days Past History - Past Medical History Allergies/Adverse Reactions: Allergies Allergy/AdvReac Type Severity Reaction Status Date / Time latex Allergy Severe Rash Verified 03/14/19 18:56 Home Medications: Ambulatory Orders Escitalopram Oxalate [Lexapro -] 20 mg PO HS 09/05/11 Montelukast Sodium [Singulair] 10 mg PO DAILY 09/05/11 Amlodipine Besylate [Norvasc -] 10 mg PO DAILY 11/06/13 Losartan Potassium 50 mg PO DAILY 11/06/13 Levothyroxine [Synthroid -] 200 mcg PO DAILY 09/29/15 Albuterol Sulfate Inhaler - [Ventolin HFA Inhaler -] 1 - 2 inh PO Q4H PRN Salmeterol/Fluticasone [Advair 100Mcg/50Mcg -] 1 inh IH ASDIR 07/27/18 Aspirin [Aspirin EC] 81 mg PO DAILY 12/30/18 Atorvastatin Calcium [Lipitor] 20 mg PO DAILY 12/30/18 Methylprednisolone [Medrol Dose Augusto] 4 mg PO ASDIR #21 tablet 03/14/19 Anemia: No Asthma: Yes Cancer: Yes (thyroid) Cardiac Disorders: No CVA: No COPD: No CHF: No Dementia: No Diabetes: No GI Disorders: Yes (REFLUX RESOLVED 8 YRS AGO) Disorders: No HTN: Yes Hypercholesterolemia: Yes Liver Disease: No Seizures: No Thyroid Disease: Yes (THYROIDECTOMY) - Surgical History Abdominal Surgery: Yes (Bilateral Salpingo-Oopherectomy) Appendectomy: No Cardiac Surgery: No Cholecystectomy: Yes (11/30/2015) Lung Surgery: No Neurologic Surgery: No Orthopedic Surgery: Yes (ORIF Right Ankle 01/2018) - Immunization History Immunization Up to Date: Yes () - Suicide/Smoking/Psychosocial Hx Smoking Status: No Smoking History: Never smoked Have you smoked in the past 12 months: No Number of Cigarettes Smoked Daily: 0 Hx Alcohol Use: No Drug/Substance Use Hx: No Substance Use Type: None Hx Substance Use Treatment: No Review of Systems - Review of Systems Able to Perform ROS?: Yes Is the patient limited Amharic proficient: No Constitutional: No: Malaise, Weakness HEENTM: No: Symptoms Reported Respiratory: No: Symptoms reported Cardiac (ROS): No: Symptoms Reported ABD/GI: No: Symptoms Reported Musculoskeletal: Yes: Symptoms Reported, See HPI, Joint Pain (right knee and ankle), Muscle Pain (right ankle) Integumentary: Yes: Symptoms Reported. No: See HPI, Bruising Neurological: No: Numbness, Paresthesia, Tingling, Weakness All Other Systems: Reviewed and Negative *Physical Exam - Vital Signs Last Vital Signs Temp Pulse Resp BP Pulse Ox 98.6 F 88 18 133/99 98 03/14/19 18:56 03/14/19 18:56 03/14/19 18:56 03/14/19 18:56 03/14/19 18:56 - Physical Exam Comments: 03/14/19 19:13 GENERAL: Well developed, well nourished. Awake and alert in moderate acute distress. PULMONARY: No evidence of respiratory distress. MUSCULOSKELETAL : significant for moderate swelling over lateral malleolus of right ankle with mild swelling to anterior patella of right knee. Negative anterior-posterior drawer tests of right knee and ankle. Increased pain to lateral aspect of right ankle with eversion of right foot. SKIN: Warm and dry. Normal capillary refill. Moderate swelling over lateral malleolus of right ankle. Mild swelling over anterior medial side of patella of right knee NEUROLOGICAL: Alert, awake, appropriate. No motor deficits in the lower extremities. Gait is normal without ataxia. PSYCHIATRIC: Cooperative. Good eye contact. Appropriate mood and affect. General Appearance: Yes: Nourished, Appropriately Dressed, Apparent Distress ED Treatment Course - RADIOLOGY Radiology Studies Ordered: Category Date Time Status ANKLE & FOOT-RIGHT* [RAD] Stat Radiology 03/14/19 19:03 Ordered KNEE 3 POS-RIGHT [RAD] Stat Radiology 03/14/19 19:03 Ordered Medical Decision Making - Medical Decision Making 03/14/19 20:04 Morbid obese patient with history of right knee arthroscopy 2 months ago and right ankle fracture repair 2 years ago present with complaint of right ankle pain and swelling with pain to anterior right knee status post slip on the wet floor and fall in the right side of her ankle and knee. Patient reported increased pain to right ankle and knee with ambulation. Denies hitting head or loss of consciousness. Denies any other symptoms. Patient have a follow-up appointment with orthopedics in 2 days Exam significant for moderate swelling over lateral malleolus of right ankle with mild swelling to anterior patella of right knee. Negative anterior- posterior drawer tests of right knee and ankle. Increased pain to lateral aspect of right ankle with eversion of right foot. X-ray of right ankle and knee shows no acute fracture. Hardware seen to distal tibia fibular from previous fracture repair with hardware in place. Patient symptoms likely knee contusion with ankle sprain. Right knee and ankle wrapped with Jose Cruz bandage. Right ankle was placed in Aircast prefabricated splint. Crutches provided to keep weight off right ankle. Toradol 60 mg IM ordered for pain. Patient stable for discharge with follow-up with orthopedics in 2 days as scheduled *DC/Admit/Observation/Transfer Diagnosis at time of Disposition: Contusion of right knee, initial encounter Fall Qualifiers: Encounter type: initial encounter Qualified Code(s): W19.XXXA - Unspecified fall, initial encounter Right ankle sprain Qualifiers: Encounter type: initial encounter Involved ligament of ankle: unspecified ligament Qualified Code(s): S93.401A - Sprain of unspecified ligament of right ankle, initial encounter - Discharge Dispostion Disposition: HOME Condition at time of disposition: Stable Decision to Admit order: No - Prescriptions Prescriptions: Methylprednisolone [Medrol Dose Augusto] 4 mg PO ASDIR #21 tablet - Referrals Referrals: Shabana Ahmadi MD [Primary Care Provider] - - Patient Instructions Printed Discharge Instructions: DI for Ankle Sprain Additional Instructions: Your x-ray of the right ankle and knee shows no acute fracture or dislocation. Symptoms likely from ankle and knee sprain. Take prescribed medication as prescribed for pain and swelling. Apply cold compress to ankle and knee 2-3 times a day as needed for swelling today and switch to hot compresses tomorrow as needed for swelling. Keep right leg elevated and use provided crutches to keep weight off right leg. Follow-up with orthopedics as scheduled in 2 days - Post Discharge Activity
[2019-03-14] MEDS ORDERED: KETOROLAC TROMETHAMINE 60 MG/2 ML VIAL IM ONE (19:59)
[2019-03-14] MEDS ORDERED: KETOROLAC TROMETHAMINE 60 MG/2 ML VIAL ONE (20:01)
== END 2019-03-14 20:25 | disposition home or self-care (01) ==
LOC: JERFT 18:55
PROC: 3E0233Z Introduction of Anti-inflammatory into Muscle, Percutaneous Approach (ICD-10-PCS; principal; 2019-03-14)
PROC: 2W3QX1Z Immobilization of Right Lower Leg using Splint (ICD-10-PCS; 2019-03-14)
DX: S93.401A Sprain of unspecified ligament of right ankle, initial encounter (principal); S80.01XA Contusion of right knee, initial encounter; W01.0XXA Fall on same level from slipping, tripping and stumbling without subsequent striking against object, initial encounter; Y93.89 Activity, other specified; Y92.89 Other specified places as the place of occurrence of the external cause; Y99.8 Other external cause status; I10 Essential (primary) hypertension; E78.00 Pure hypercholesterolemia, unspecified; J45.909 Unspecified asthma, uncomplicated; E89.0 Postprocedural hypothyroidism
CPT/HCPCS: 29515; 73562-TC-RT-FY; 73610-TC-RT-FY; 73630-TC-RT-FY; 96372; 99281-25

== ENCOUNTER 2019-04-22 17:23 | Inpatient (IN) | payer OTHER ==
--- NOTE | 2019-04-22 17:30 | PDOC ---
Rapid Medical Evaluation Time Seen by Provider: 04/22/19 17:29 Medical Evaluation: Allergies Allergy/AdvReac Type Severity Reaction Status Date / Time latex Allergy Severe Rash Verified 03/14/19 18:56 04/22/19 17:29 I have performed a brief in-person evaluation of this patient. The patient presents with a chief complaint of: asthma Pertinent physical exam findings:stable and in NAD, non-focal I have ordered the following: duoneb The patient will proceed to the ED for further evaluation.
[2019-04-22] MEDS ORDERED: ALBUTEROL SO4 2.5/IPRATROPIUM 0.5 INH SOL 3 ML VIAL.NEB. NEB ONE ×2 (18:20→18:24)
--- NOTE | 2019-04-22 18:28 | PDOC ---
History of Present Illness - General Chief Complaint: Asthma Stated Complaint: ASTHMATIC FLAREUP Time Seen by Provider: 04/22/19 17:29 - History of Present Illness Initial Comments: 04/22/19 18:20 CHIEF COMPLAINT: asthma exacerbation HISTORY OF PRESENT ILLNESS: 58 yo F with hx of asthma presents to [facility] with asthma exacerbation. Patient states she has had an ongoing coughing and wheezing x 3 weeks. She was seen by her primary care doctor and given a course of amoxicillin without relief, and then a course of azithromycin and 3 days of prednisone which helped for a few days but then "it started acting up again." Patient denies any fever, chills, nausea, vomiting. No recent travel or sick contacts. PAST MEDICAL HISTORY: asthma, HTN, HLD FAMILY HISTORY: Denies SOCIAL HISTORY: Denies tobacco, alcohol, illicit drug use. ALLERGIES: latex REVIEW OF SYSTEMS General/Constitutional: Denies fever or chills. Denies weakness, weight change. HEENT: Denies change in vision. Denies ear pain or discharge. Denies sore throat. Cardiovascular: Denies chest pain or shortness of breath. Respiratory: Cough, wheezing x 3 weeks. Gastrointestinal: Denies nausea, vomiting, diarrhea or constipation. Denies rectal bleeding. Genitourinary: Denies dysuria, frequency, or change in urination. Musculoskeletal: Denies joint or muscle swelling or pain. Denies neck or back pain. Skin and breasts: Denies rash or easy bruising. Neurologic: Denies headache, vertigo, loss of consciousness, or loss of sensation. PHYSICAL EXAM General Appearance: Well-appearing, appropriately dressed. No apparent distress , no intoxication. HEENT: EOMI, PERRLA, normal ENT inspection, normal voice, TMs normal, pharynx normal. No conjunctival pallor. No photophobia, scleral icterus. Neck: Supple. Trachea midline. No tenderness, rigidity, carotid bruit, stridor , lymphadenopathy, or thyromegaly. Respiratory/Chest: Expiratory wheezing bilaterally with persistent dry cough. No crackles, rales, rhonchi, stridor, dullness. Cardiovascular: RRR. S1, S2. No JVD, murmur, bradycardia, tachycardia. Vascular Pulses: Dorsalis-Pedis (R): 2+, Dorsalis-Pedis (L): 2+ Gastrointestinal/Abdominal: Normal bowel sounds. Abdomen soft, non-distended. No tenderness or rebound tenderness. No organomegaly, pulsatile mass, guarding , hernia, hepatomegaly, splenomegaly. Lymphatic: No adenopathy, tenderness. Musculoskeletal/Extremities: Normal inspection. FROM of all extremities, normal capillary refill. Pelvis Stable. No CVA tenderness. No tenderness to extremities, pedal edema, swelling, erythema or deformity. Integumentary: Appropriate color, dry, warm. No cyanosis, erythema, jaundice or rash Neurologic: burr bench operator II-XII intact. Fully oriented, alert. Appropriate mood/affect. Motor strength 5/5. No appreciable EOM palsy, facial droop or sensory deficit. Past History - Past Medical History Allergies/Adverse Reactions: Allergies Allergy/AdvReac Type Severity Reaction Status Date / Time latex Allergy Severe Rash Verified 04/22/19 17:31 Home Medications: Ambulatory Orders Escitalopram Oxalate [Lexapro -] 20 mg PO DAILY 09/05/11 Montelukast Sodium [Singulair] 10 mg PO DAILY 09/05/11 Amlodipine Besylate [Norvasc -] 10 mg PO DAILY 11/06/13 Losartan Potassium 50 mg PO DAILY 11/06/13 Levothyroxine [Synthroid -] 200 mcg PO DAILY 09/29/15 Albuterol Sulfate Inhaler - [Ventolin HFA Inhaler -] 1 - 2 inh PO Q4H PRN Salmeterol/Fluticasone [Advair 100Mcg/50Mcg -] 1 inh IH ASDIR 07/27/18 Aspirin [Aspirin EC] 81 mg PO DAILY 12/30/18 Atorvastatin Calcium [Lipitor] 20 mg PO DAILY 12/30/18 Atorvastatin Calcium 10 mg PO DAILY 04/22/19 Cholecalciferol (Vitamin D3) [Vitamin D3] 2,000 units PO DAILY 04/22/19 Fenofibrate,Micronized [Fenofibrate] 134 mg PO DAILY 04/22/19 Losartan Potassium 100 mg PO DAILY 04/22/19 Zolpidem Tartrate [Ambien] 5 mg PO DAILY 04/22/19 Anemia: No Asthma: Yes Cancer: Yes (thyroid) Cardiac Disorders: No CVA: No COPD: No CHF: No Dementia: No Diabetes: No GI Disorders: Yes (REFLUX RESOLVED 8 YRS AGO) Disorders: No HTN: Yes Hypercholesterolemia: Yes Liver Disease: No Seizures: No Thyroid Disease: Yes (THYROIDECTOMY) - Surgical History Abdominal Surgery: Yes (Bilateral Salpingo-Oopherectomy) Appendectomy: No Cardiac Surgery: No Cholecystectomy: Yes (11/30/2015) Lung Surgery: No Neurologic Surgery: No Orthopedic Surgery: Yes (ORIF Right Ankle 01/2018) - Immunization History Immunization Up to Date: Yes () - Suicide/Smoking/Psychosocial Hx Smoking Status: No Smoking History: Never smoked Have you smoked in the past 12 months: No Number of Cigarettes Smoked Daily: 0 Hx Alcohol Use: No Drug/Substance Use Hx: No Substance Use Type: None Hx Substance Use Treatment: No *Physical Exam - Vital Signs Last Vital Signs Temp Pulse Resp BP Pulse Ox 98.4 F 85 18 123/66 95 04/22/19 17:28 04/22/19 17:28 04/22/19 17:28 04/22/19 17:28 04/22/19 17:28 ED Treatment Course - LABORATORY CBC & Chemistry Diagram: 04/22/19 19:00 04/22/19 19:00 Medical Decision Making - Medical Decision Making 04/22/19 18:28 58 yo F with hx of asthma presents to fast track with asthma exacerbation. -cxr -duoneb x 3 04/22/19 18:56 Patient continues to have significant wheezing b/l despite treatments. Will transfer to main ED. labs, Mg ordered Note: After review of the history of present illness and physical examination by Nurse Practitioner, the patient was transfered to the main ED for higher lever of care. The patient is medically stable for transfer, ED attending and charge nurse/main ED nursing staff aware. 04/22/19 19:22 *DC/Admit/Observation/Transfer Diagnosis at time of Disposition: Asthma exacerbation Qualifiers: Asthma severity: moderate Asthma persistence: persistent Qualified Code(s): J45.41 - Moderate persistent asthma with (acute) exacerbation - Discharge Dispostion Condition at time of disposition: Stable - Referrals - Patient Instructions - Post Discharge Activity
[2019-04-22] MEDS ORDERED: MAGNESIUM SULF 50% (8.12 MEQ/2 ML-1 GM VIAL) IVPB ONE (18:57)
[2019-04-22 19:32] LABS: BASO % 1.4 % (0-2.0); EOS % 7.1 % (0-4.5); HEMATOCRIT 40.4 % (32.4-45.2); HEMOGLOBIN 13.7 GM/dL (10.7-15.3); LYMPH % 31.5 % (8-40); MCH 30.6 pg (25.7-33.7); MCHC 33.9 g/dl (32.0-36.0); MEAN CELL VOLUME 90.2 fl (80-96); MEAN PLT VOLUME 8.7 fl (7.5-11.1); MONO % 6.4 % (3.8-10.2); NEUT % 53.6 % (42.8-82.8); PLATELET COUNT 339 K/MM3 (134-434); RBC 4.48 M/mm3 (3.60-5.2); RDW 13.1 % (11.6-15.6); WHITE BLOOD COUNT 9.4 K/mm3 (4.0-10.0)
[2019-04-22] MEDS ORDERED: MAGNESIUM SULF 50% (8.12 MEQ/2 ML-1 GM VIAL) ONE (19:41)
[2019-04-22 20:03] LABS: ALBUMIN 4.2 g/dl (3.4-5.0); BILIRUBIN,TOTAL 0.2 mg/dL (0.2-1); BLOOD UREA NITROGEN 13.1 mg/dL (7-18); CALCIUM 9.9 mg/dL (8.5-10.1); CREATININE 0.8 mg/dL (0.55-1.3); TOT PROT 7.7 g/dl (6.4-8.2)
--- NOTE | 2019-04-22 20:26 | PDOC ---
*Physical Exam - Vital Signs Last Vital Signs Temp Pulse Resp BP Pulse Ox 98.4 F 85 18 123/66 95 04/22/19 17:28 04/22/19 17:28 04/22/19 17:28 04/22/19 17:28 04/22/19 17:28 - Physical Exam General Appearance: Yes: Nourished, Appropriately Dressed. No: Apparent Distress Respiratory/Chest: positive: Wheezing (expiratory throughout all lung portillo). negative: Respiratory Distress, Accessory Muscle Use Cardiovascular: positive: Regular Rhythm, Regular Rate, S1, S2 (present). negative: Murmur ED Treatment Course - LABORATORY CBC & Chemistry Diagram: 04/22/19 19:00 04/22/19 19:00 - ADDITIONAL ORDERS Additional order review: Laboratory Results 04/22/19 19:00 Sodium 141 Potassium 4.0 Chloride 106 Carbon Dioxide 30 Anion Gap 6 L BUN 13.1 Creatinine 0.8 Est GFR (CKD-EPI)AfAm 93.53 Est GFR (CKD-EPI)NonAf 80.70 Random Glucose 85 Calcium 9.9 Total Bilirubin 0.2 AST 24 ALT 34 Alkaline Phosphatase 77 Total Protein 7.7 Albumin 4.2 04/22/19 19:00 RBC 4.48 MCV 90.2 MCHC 33.9 RDW 13.1 MPV 8.7 Neutrophils % 53.6 D Lymphocytes % 31.5 Monocytes % 6.4 Eosinophils % 7.1 H Basophils % 1.4 - Medications Given in the ED: ED Medications Discontinued Medications Generic Name Dose Route Start Last Admin Trade Name Freq PRN Reason Stop Dose Admin Albuterol/Ipratropium 3 amp 04/22/19 18:20 04/22/19 18:27 Duoneb - NEB 04/22/19 18:21 3 amp ONCE ONE Administration Magnesium Sulfate 1 gm 04/22/19 18:57 04/22/19 20:23 Magnesium Sulfate IVPB 04/22/19 18:58 1 gm ONCE ONE Administration Medical Decision Making - Medical Decision Making 04/22/19 21:25 Signed out from FT for asthma exacerbation not clearing after duonebs; mag and solumedrol ordered Finished round of amoxicillin and prednisone for previous exacerbation with minimal relief of symptoms Unable to walk up 1 flight of stairs without getting short of breath CXR clear Still with significant wheezing s/p mag duox4, solumedrol Admit for asthma exacerbation. PCP Shabana Ahmadi Sign out given to Dr. Mcginnis. Attending Dr. Patel. *DC/Admit/Observation/Transfer Diagnosis at time of Disposition: Asthma exacerbation Qualifiers: Asthma severity: moderate Asthma persistence: persistent Qualified Code(s): J45.41 - Moderate persistent asthma with (acute) exacerbation - Discharge Dispostion Condition at time of disposition: Stable Decision to Admit order: Yes - Referrals - Patient Instructions - Post Discharge Activity
[2019-04-22] MEDS ORDERED: methylPREDNISolone NA SUCC 125 MG/2 ML VIAL IVPUSH ONE (21:27)
[2019-04-22] MEDS ORDERED: methylPREDNISolone NA SUCC 125 MG/2 ML VIAL ONE (21:43)
[2019-04-22] MEDS ORDERED: ALBUTEROL SO4 0.083% IH SOL 2.5 MG/3 ML VIAL.NEB. NEB ONE (23:13)
[2019-04-22] MEDS: ALBUTEROL SO4 0.083% IH SOL 2.5 MG/3 ML VIAL.NEB. NEB PRN (23:24)
[2019-04-22] MEDS ORDERED: FLUTICASONE/SALMETEROL 100 MCG/50 MCG DISKUS IH SCH (23:45)
--- NOTE | 2019-04-23 00:05 | HP ---
CHIEF COMPLAINT: Coughing and hweezing for the past 3 weeks. PCP: Shabnaa Mcdonald HISTORY OF PRESENT ILLNESS: This is a 58 year old female with PMH significant for asthma. She presented to the ER with complaints of coughing and wheezing for the past 3 weeks. She states that the wheezing began suddenly, followed shortly afterwards by episodes of coughing. The wheezing is constant throughout the day, not related to exertion, and is not associated with any SOB. The coughing also began suddenly, is non productive, and is intermittent, occurring more frequently at night. She presented to her PCP and was prescribed amoxicillin without relief. She was then put on a course of azithromycin and 3 days of prednisone which provided only temporary relief. She admits to non compliance with symbicort, based on her belief that it does not work. She states that she has never been intubated for her asthma exacerbations, and has approximately one episode of asthma exacerbation per year. There are no associated complaints of exposure to sick contacts, fevers, chills , dizziness, light headedness, chest pain, palpitations, nausea, vomiting, dysuria, urgency, or hematuria. She also endorses a total of 9 episodes of diarrhea with 3 episodes per day between Saturday to Saturday (04/19-04/21). The stool was described as watery, brown, non foul smelling, with no blood or pain during defecation. The diarrhea resolved without any intervention. She lives with her , and states that he has not had similar symptoms recently. ER course was notable for: (1) CXR: no acute pathology (2) Duonebs x3, Magnesium [id number] (3) Solu-Medrol 125mg Recent Travel: None PAST MEDICAL HISTORY: Asthma Hypothyroidism PAST SURGICAL HISTORY: R Knee arthroscopy Thyroid surgery in 2005 GB removal in 2016 B/L oopherectomy in 2016 Social History: Smoking: Alcohol: Drugs: Family History: Allergies latex Allergy (Severe, Verified 04/22/19 17:31) Rash HOME MEDICATIONS: Home Medications Medication Instructions Recorded Escitalopram Oxalate [Lexapro -] 20 mg PO DAILY 09/05/11 Montelukast Sodium [Singulair] 10 mg PO DAILY 09/05/11 Amlodipine Besylate [Norvasc -] 10 mg PO DAILY 11/06/13 Losartan Potassium 50 mg PO DAILY 11/06/13 Levothyroxine [Synthroid -] 200 mcg PO DAILY 09/29/15 Albuterol Sulfate Inhaler - 1 - 2 inh PO Q4H PRN 02/06/18 [Ventolin HFA Inhaler -] Salmeterol/Fluticasone [Advair 1 inh IH ASDIR 07/27/18 100Mcg/50Mcg -] Aspirin [Aspirin EC] 81 mg PO DAILY 12/30/18 Atorvastatin Calcium [Lipitor] 20 mg PO DAILY 12/30/18 Methylprednisolone [Medrol Dose 4 mg PO ASDIR #21 tablet 03/14/19 Augusto] Atorvastatin Calcium 10 mg PO DAILY 04/22/19 Cholecalciferol (Vitamin D3) 2,000 units PO DAILY 04/22/19 [Vitamin D3] Fenofibrate,Micronized 134 mg PO DAILY 04/22/19 [Fenofibrate] Losartan Potassium 100 mg PO DAILY 04/22/19 Zolpidem Tartrate [Ambien] 5 mg PO DAILY 04/22/19 REVIEW OF SYSTEMS CONSTITUTIONAL: Absent: fever, chills, diaphoresis, generalized weakness, malaise, loss of appetite, weight change HEENT: Absent: rhinorrhea, nasal congestion, throat pain, throat swelling, difficulty swallowing, mouth swelling, ear pain, eye pain, visual changes CARDIOVASCULAR: Absent: chest pain, syncope, palpitations, irregular heart rate, lightheadedness , peripheral edema RESPIRATORY: Absent: cough, shortness of breath, dyspnea with exertion, orthopnea, wheezing, stridor, hemoptysis GASTROINTESTINAL: Absent: abdominal pain, abdominal distension, nausea, vomiting, diarrhea, constipation, melena, hematochezia GENITOURINARY: Absent: dysuria, frequency, urgency, hesitancy, hematuria, flank pain, genital pain MUSCULOSKELETAL: Absent: myalgia, arthralgia, joint swelling, back pain, neck pain SKIN: Absent: rash, itching, pallor HEMATOLOGIC/IMMUNOLOGIC: Absent: easy bleeding, easy bruising, lymphadenopathy, frequent infections ENDOCRINE: Absent: unexplained weight gain, unexplained weight loss, heat intolerance, cold intolerance NEUROLOGIC: Absent: headache, focal weakness or paresthesias, dizziness, unsteady gait, seizure, mental status changes, bladder or bowel incontinence PSYCHIATRIC: Absent: anxiety, depression, suicidal or homicidal ideation, hallucinations. PHYSICAL EXAMINATION Vital Signs - 24 hr 04/22/19 17:28 Temperature 98.4 F Pulse Rate 85 Respiratory 18 Rate Blood Pressure 123/66 O2 Sat by Pulse 95 Oximetry (%) GENERAL: Awake, alert, and fully oriented, in no acute distress. HEAD: Normal with no signs of trauma. EYES: Pupils equal, round and reactive to light, extraocular movements intact, sclera anicteric, conjunctiva clear. No lid lag. EARS, NOSE, THROAT: Ears normal, nares patent, oropharynx clear without exudates. Moist mucous membranes. NECK: Normal range of motion, supple without lymphadenopathy, JVD, or masses. LUNGS: Breath sounds equal, clear to auscultation bilaterally. No wheezes, and no crackles. No accessory muscle use. HEART: Regular rate and rhythm, normal S1 and S2 without murmur, rub or gallop. ABDOMEN: Soft, nontender, not distended, normoactive bowel sounds, no guarding, no rebound, no masses. No hepatomegaly or splenomegaly. MUSCULOSKELETAL: Normal range of motion at all joints. No bony deformities or tenderness. No CVA tenderness. UPPER EXTREMITIES: 2+ pulses, warm, well-perfused. No cyanosis. No clubbing. No peripheral edema. LOWER EXTREMITIES: 2+ pulses, warm, well-perfused. No calf tenderness. No peripheral edema. NEUROLOGICAL: Cranial nerves II-XII intact. Normal speech. Normal gait. PSYCHIATRIC: Cooperative. Good eye contact. Appropriate mood and affect. SKIN: Warm, dry, normal turgor, no rashes or lesions noted, normal capillary refill. Laboratory Results - last 24 hr 04/22/19 04/22/19 19:00 19:00 WBC 9.4 RBC 4.48 Hgb 13.7 Hct 40.4 MCV 90.2 MCH 30.6 MCHC 33.9 RDW 13.1 Plt Count 339 MPV 8.7 Absolute Neuts (auto) 5.0 Neutrophils % 53.6 D Lymphocytes % 31.5 Monocytes % 6.4 Eosinophils % 7.1 H Basophils % 1.4 Nucleated RBC % 0 Sodium 141 Potassium 4.0 Chloride 106 Carbon Dioxide 30 Anion Gap 6 L BUN 13.1 Creatinine 0.8 Est GFR (CKD-EPI)AfAm 93.53 Est GFR (CKD-EPI)NonAf 80.70 Random Glucose 85 Calcium 9.9 Total Bilirubin 0.2 AST 24 ALT 34 Alkaline Phosphatase 77 Total Protein 7.7 Albumin 4.2 ASSESSMENT/PLAN: This is a 58 year old female with PMH significant for asthma. She presented to the ER with complaints of coughing and wheezing for the past 3 weeks, admitted for asthma exacerbation. #Asthma exacerbation - Solu Medrol 40mg IVPUSH Q12H - Duonebs Q6H - Ventolin - Symbicort - Pulmo consult placed - PEF ordered - O2 as needed - No Azithromycin for now since she completed a 5 day course last week - PFT outpatient #Eosinophilia - 7.1% - Consider RAST testing outpatient #Hx of HTN - Cont home meds Norvasc 10mg, Losartan 100mg #Hx of HLD - Cont Lipitor 10mg #Hx of hypothyroidism - Cont. home med Levothyroxine #DVT PE - Lovenox 40mg #Code status - Full code Visit type - Emergency Visit Emergency Visit: Yes ED Registration Date: 04/22/19 Care time: The patient presented to the Emergency Department on the above date and was hospitalized for further evaluation of their emergent condition. - New Patient This patient is new to me today: Yes Date on this admission: 04/27/19 - Critical Care Critical Care patient: No ATTENDING PHYSICIAN STATEMENT I saw and evaluated the patient. I reviewed the resident's note and discussed the case with the resident. I agree with the resident's findings and plan as documented. SUBJECTIVE: OBJECTIVE: ASSESSMENT AND PLAN:
[2019-04-23] MEDS: FLUTICASONE/SALMETEROL 100 MCG/50 MCG DISKUS IH SCH ×3 (01:08→23:10)
[2019-04-23 03:29] VITALS: BMI 41.3
[2019-04-23] MEDS ORDERED: ZOLPIDEM TARTRATE 5 MG TABLET PO SCH (04:15)
[2019-04-23] MEDS: LEVOTHYROXINE NA 200 MCG TABLET PO SCH (06:48)
--- NOTE | 2019-04-23 06:50 | PN ---
Teaching Attending Note Name of Resident: Alan Rivera ATTENDING PHYSICIAN STATEMENT I saw and evaluated the patient. Chart, data, imaging reviewed. I reviewed the resident's note and discussed the case with the resident. I agree with the resident's findings and plan as documented. SUBJECTIVE: 58yo woman with asthma d/o, eosinophilia c/o 3 weeks of chest tightness, shortness of breath and decreased exercise tolerance. Has been using her albuterol inhaler without much relief. PCP rx ed course of augmentin, aithromycin and prednisone x3 days without much relief. 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 She does not take her symbicort. Denied sick contacts, recent travels. OBJECTIVE: Last Vital Signs Temp Pulse Resp BP Pulse Ox 98.8 F 82 18 137/84 95 04/23/19 04:29 04/23/19 04:29 04/23/19 04:29 04/23/19 04:29 04/23/19 02:53 general -nad, speaks in full sentences heent- no oral erythema neck supple cv -s1+s2+rrr chest clear b/l, no wheezing or crackles abdomen- soft, obese ext - no pedal edema Abnormal Lab Results 04/22/19 04/22/19 19:00 19:00 Eosinophils % 7.1 H Anion Gap 6 L ASSESSMENT AND PLAN: Moderate to severe persistent asthma not controlled due to medication noncompliance (symbicort). Much improved after duonebs x3, methylprednisone, mg in ER. Patient noted to have persistently elevated eosinophil% which may be c /w more severe disease. -admit to med/surg -duonebs q6hrs -methylprednsione 40mg IVPB q12hrs -restart symbicort -peak flow monitoring -supplemental o2 prn -repsiratory watch -will hold off azithromycin for now since took recent course -pulm consult -needs pfts -RAST -total eosinophil count -c/w home dose levothyroxine, anti- htn med, anti dlp med -heparin sc for dvt ppx
[2019-04-23] MEDS: ALBUTEROL SO4 2.5/IPRATROPIUM 0.5 INH SOL 3 ML VIAL.NEB. NEB SCH ×4 (08:15→20:44)
[2019-04-23 08:24] LABS: BASO % 0.5 % (0-2.0); EOS % 0.1 % (0-4.5); HEMATOCRIT 38.4 % (32.4-45.2); HEMOGLOBIN 13.3 GM/dL (10.7-15.3); LYMPH % 10.9 % (8-40); MCH 31.1 pg (25.7-33.7); MCHC 34.6 g/dl (32.0-36.0); MEAN CELL VOLUME 90.1 fl (80-96); MONO % 0.7 % (3.8-10.2); NEUT % 87.8 % (42.8-82.8); PLATELET COUNT 346 K/MM3 (134-434); RBC 4.27 M/mm3 (3.60-5.2); RDW 12.7 % (11.6-15.6); WHITE BLOOD COUNT 8.8 K/mm3 (4.0-10.0)
[2019-04-23 08:30] LABS: BLOOD UREA NITROGEN 14.4 mg/dL (7-18); CALCIUM 9.3 mg/dL (8.5-10.1); CREATININE 0.9 mg/dL (0.55-1.3); MAGNESIUM 2.3 mg/dL (1.8-2.4); POTASSIUM 4.1 mmol/L (3.5-5.1)
--- NOTE | 2019-04-23 09:24 | CON.PULM ---
Consult Consult Specialty:: PULM/CCM Referred by:: Hospitalist Reason for Consultation:: SOB - History of Present Illness Chief Complaint: SOB History of Present Illness: 58 F, long standing intermittent asthma. No previous intubations. Not steroid dependent. Unknown PEF. Was seen by Dr Corbett previously but did not complete her PFTs as she had an injury to her right foot. Had sleep testing she thinks in that was apparently (+) but not treated. No significant GERD symptoms. Some mid seasonal allergy symptoms. Admitted via the ER due to coughing and wheezing for the past 3 weeks. She was prescribed amoxicillin by her PMD without relief of symptoms. She was subsequently prescribed azithromycin and 3 days of prednisone which only gave her mild relief. No recent travel history or sick contacts. No hemoptysis. Also reports diarrhea which has resolved. - History Source History Provided By: Patient Limitations to Obtaining History: No Limitations - Past Medical History Cardio/Vascular: Yes: HTN Pulmonary: Yes: Asthma, Bronchitis, Sleep Apnea. No: Cancer, COPD, O2 Dependent , Pneumonia, Previously Intubated, Pulmonary Embolus, Pulmonary Fibrosis ...: No Endocrine: Yes: Hypothyroidism, Other (history thyroid cancer with resection 10 years ago) - Past Surgical History Past Surgical History: Yes: - Alcohol/Substance Use Hx Alcohol Use: No - Smoking History Smoking history: Never smoked Have you smoked in the past 12 months: No Aproximately how many cigarettes per day: 0 If you are a former smoker, when did you quit?: 32 years ago - Social History History of Recent Travel: No Home Medications - Allergies Allergies/Adverse Reactions: Allergies Allergy/AdvReac Type Severity Reaction Status Date / Time latex Allergy Severe Rash Verified 04/22/19 17:31 - Home Medications Home Medications: Ambulatory Orders Escitalopram Oxalate [Lexapro -] 20 mg PO DAILY 09/05/11 Montelukast Sodium [Singulair] 10 mg PO DAILY 09/05/11 Amlodipine Besylate [Norvasc -] 10 mg PO DAILY 11/06/13 Losartan Potassium 50 mg PO DAILY 11/06/13 Levothyroxine [Synthroid -] 200 mcg PO DAILY 09/29/15 Albuterol Sulfate Inhaler - [Ventolin HFA Inhaler -] 1 - 2 inh PO Q4H PRN Salmeterol/Fluticasone [Advair 100Mcg/50Mcg -] 1 inh IH ASDIR 07/27/18 Aspirin [Aspirin EC] 81 mg PO DAILY 12/30/18 Atorvastatin Calcium [Lipitor] 20 mg PO DAILY 12/30/18 Atorvastatin Calcium 10 mg PO DAILY 04/22/19 Cholecalciferol (Vitamin D3) [Vitamin D3] 2,000 units PO DAILY 04/22/19 Fenofibrate,Micronized [Fenofibrate] 134 mg PO DAILY 04/22/19 Losartan Potassium 100 mg PO DAILY 04/22/19 Zolpidem Tartrate [Ambien] 5 mg PO DAILY 04/22/19 Review of Systems - Review of Systems Constitutional: reports: Malaise. denies: Chills, Fever, Night Sweats, Unintentional Wgt. Loss Eyes: reports: No Symptoms HENT: reports: No Symptoms Neck: reports: No Symptoms Cardiovascular: reports: Shortness of Breath. denies: Chest Pain, Edema, Palpitations Respiratory: reports: Cough, Snoring, SOB, SOB on Exertion, Wheezing. denies: Hemoptysis, Orthopnea Gastrointestinal: reports: No Symptoms Genitourinary: reports: No Symptoms Breasts: reports: No Symptoms Reported Musculoskeletal: reports: No Symptoms Integumentary: reports: No Symptoms Neurological: reports: No Symptoms Endocrine: reports: No Symptoms Hematology/Lymphatic: reports: No Symptoms Psychiatric: reports: No Symptoms Physical Exam Vital Sings: Vital Signs Temperature 98.8 F 04/23/19 04:29 Pulse Rate 82 04/23/19 04:29 Respiratory Rate 18 04/23/19 04:29 Blood Pressure 137/84 04/23/19 04:29 O2 Sat by Pulse Oximetry (%) 95 04/23/19 02:53 Constitutional: Yes: No Distress, Obese Eyes: Yes: Conjunctiva Clear, EOM Intact HENT: Yes: Atraumatic, Normocephalic Neck: Yes: Supple, Trachea Midline Cardiovascular: Yes: Regular Rate and Rhythm Respiratory: Yes: Cough, Diminished, Rhonchi, SOB, SOB on Exertion, Tachypnea, Wheezes. No: Accessory Muscle Use, Rales, Stridor ...Inspection: Yes: WNL ...Clubbing: No Gastrointestinal: Yes: Normal Bowel Sounds, Soft, Abdomen, Obese Renal/: Yes: WNL Musculoskeletal: Yes: WNL Extremities: Yes: WNL Edema: No Peripheral Pulses WNL: Yes Integumentary: Yes: WNL Neurological: Yes: WNL, Alert, Oriented ...Motor Strength: WNL Psychiatric: Yes: WNL, Alert, Oriented Labs: CBC, BMP 04/23/19 06:45 Imaging - Results Chest X-ray: Report Reviewed, Image Reviewed Problem List - Problems (1) Sleep apnea Code(s): G47.30 - SLEEP APNEA, UNSPECIFIED (2) Morbid obesity Code(s): E66.01 - MORBID (SEVERE) OBESITY DUE TO EXCESS CALORIES (3) Acute bronchitis Code(s): J20.9 - ACUTE BRONCHITIS, UNSPECIFIED (4) Eosinophilia Code(s): D72.1 - EOSINOPHILIA (5) Asthma exacerbation Code(s): J45.901 - UNSPECIFIED ASTHMA WITH (ACUTE) EXACERBATION Qualifiers: Asthma severity: moderate Asthma persistence: persistent Qualified Code(s ): J45.41 - Moderate persistent asthma with (acute) exacerbation (6) HTN (hypertension) Code(s): I10 - ESSENTIAL (PRIMARY) HYPERTENSION Assessment/Plan Medrol BD TX Start Singulair Advair: on discharge should be on the higher dose inhaler Monitor daily PEF (patient does not know her baseline) Monitor off ABX Outpatient PFTs No smoking Will need formal OSAS re-evaluation O2 as needed VTE prophylaxis Noted elevated eosinophil count: absolute count 743: should monitor as an outpatient to determine if this may potentially be exacerbating her asthma (low suspicion). Will follow Thank you. Dr Townsend
[2019-04-23] MEDS: ENOXAPARIN NA (PORCINE) 40 MG/0.4 ML DISP.SYRIN SQ SCH (11:04)
[2019-04-23] MEDS: LOSARTAN POTASSIUM 50 MG TABLET (FP) PO SCH (11:04)
[2019-04-23] MEDS: amLODIPine BESYLATE 10 MG TABLET (FP) PO SCH (11:04)
[2019-04-23] MEDS: ESCITALOPRAM OXALATE 20 MG TABLET (FP) PO SCH (11:05)
[2019-04-23] MEDS: methylPREDNISolone NA SUCC 40 MG/1 ML VIAL IVPUSH SCH ×2 (11:05→22:22)
[2019-04-23] MEDS: ASPIRIN COATED 81 MG TABLET.EC PO SCH (11:05)
--- NOTE | 2019-04-23 12:24 | EKG ---
Test Reason : Blood Pressure : / mmHG Vent. Rate : 077 BPM Atrial Rate : 077 BPM P-R Int : 166 ms QRS Dur : 090 ms QT Int : 386 ms P-R-T Axes : 061 005 046 degrees QTc Int : 436 ms POOR DATA QUALITY, INTERPRETATION MAY BE ADVERSELY AFFECTED NORMAL SINUS RHYTHM NORMAL ECG WHEN COMPARED WITH ECG OF 24-JAN-2016 11:00, NO SIGNIFICANT CHANGE WAS FOUND Confirmed by [place] SANDOVAL, KAREEM ([id number]) on 04/23/2019 12:24:24 PM Referred By: Confirmed By:KAREEM ALEJANDRA MD
--- NOTE | 2019-04-23 12:28 | PN ---
Teaching Attending Note Name of Resident: Shawn Peña ATTENDING PHYSICIAN STATEMENT I saw and evaluated the patient. I reviewed the resident's note and discussed the case with the resident. I agree with the resident's findings and plan as documented. SUBJECTIVE:c/o non productive cough. worse since arrival. difficulty breathing. denies Cp, fever, chills, N/V/C/D OBJECTIVE: Last Vital Signs Temp Pulse Resp BP Pulse Ox 98.8 F 82 18 137/84 95 04/23/19 04:04/23/19 04:04/23/19 04:04/23/19 04:04/23/19 02:53 General NAD CV S1 S2 RRR no murmur/rub/gallop Lungs CTA B/L no wheezing. poor inspiratory effort abdomen soft NT/ND ASSESSMENT AND PLAN: 58yo F wtih PMH asthma, thryoid ca s/p resection presented to the ER with SOB with recent treatment with augmentin/azithro and prednisone for 3 days 1. Acute asthma exacerbation (has yearly hospitalizations, never been intubated) - failed outpatient therapy. will need to obtain peak flow. cepacol for cough, refuses robitussin. on medrol 40mg BID, advair, nebs prn and RTC. started on singulair. pulmonary consulted 2. thyroid ca- on LT4 3. HTN- controlled. cont medications 4. dyslipidemia- statin 5. DVT ppx- lovenox
[2019-04-23] MEDS ORDERED: PT OWN MED DRAWER 7, Y5N ONE ×2 (14:35→22:17)
[2019-04-23] MEDS: BENZOCAINE/MENTH/CETYLPYRD CL 1 EACH LOZENGE MM PRN ×2 (15:11→22:22)
--- NOTE | 2019-04-23 17:14 | PN ---
Physical Exam: SUBJECTIVE: 58 y/o F w PMH of asthma whom presented to ED c/o coughing and wheezing for the past 3 weeks and admitted for asthma exacerbation. Pt seen at bedside today. Cough is still present, nonproductive. She denies SOB , CP, NVFCD. OBJECTIVE: Vital Signs Period Temp Pulse Resp BP Sys/Travis Pulse Ox Last 24 Hr 98.2 F-98.8 F 82-107 18-20 123-137/65-88 95-95 GENERAL: AOx3, in no acute distress. HEAD: NCAT EYES: SATISH, EOMI, conjunctiva clear. EARS, NOSE, THROAT: Ears normal, nares patent, oropharynx clear without exudates. Moist mucous membranes. NECK: Normal range of motion, supple without lymphadenopathy, JVD, or masses. LUNGS: CTAB . Wheezes present BL upper portillo. No accessory muscle use. HEART: RRR s1 s2 ABDOMEN: Soft, BS present in all 4 quadrants, non-distended, no JVD, MUSCULOSKELETAL: No bony deformities or tenderness. No CVA tenderness. UPPER EXTREMITIES: 2+ pulses, warm, well-perfused. No cyanosis. No clubbing. No peripheral edema. LOWER EXTREMITIES: 2+ pulses, warm, well-perfused. No calf tenderness. No peripheral edema. NEUROLOGICAL: Cranial nerves II-XII intact. Normal speech. Gait not appreciated. PSYCHIATRIC: Cooperative. Good eye contact. Appropriate mood and affect. SKIN: Warm, dry, normal turgor, no rashes or lesions noted, normal capillary refill. Laboratory Results - last 24 hr 04/22/19 04/22/19 04/23/19 19:00 19:00 06:45 WBC 9.4 8.8 RBC 4.48 4.27 Hgb 13.7 13.3 Hct 40.4 38.4 MCV 90.2 90.1 MCH 30.6 31.1 MCHC 33.9 34.6 RDW 13.1 12.7 Plt Count 339 346 MPV 8.7 9.0 Absolute Neuts (auto) 5.0 7.8 Neutrophils % 53.6 D 87.8 H D Lymphocytes % 31.5 10.9 D Monocytes % 6.4 0.7 L D Eosinophils % 7.1 H 0.1 D Basophils % 1.4 0.5 Nucleated RBC % 0 0 Sodium 141 Potassium 4.0 Chloride 106 Carbon Dioxide 30 Anion Gap 6 L BUN 13.1 Creatinine 0.8 Est GFR (CKD-EPI)AfAm 93.53 Est GFR (CKD-EPI)NonAf 80.70 Random Glucose 85 Calcium 9.9 Magnesium Total Bilirubin 0.2 AST 24 ALT 34 Alkaline Phosphatase 77 Total Protein 7.7 Albumin 4.2 TSH 04/23/19 06:45 WBC RBC Hgb Hct MCV MCH MCHC RDW Plt Count MPV Absolute Neuts (auto) Neutrophils % Lymphocytes % Monocytes % Eosinophils % Basophils % Nucleated RBC % Sodium 142 Potassium 4.1 Chloride 104 Carbon Dioxide 24 Anion Gap 14 BUN 14.4 Creatinine 0.9 Est GFR (CKD-EPI)AfAm 81.11 Est GFR (CKD-EPI)NonAf 69.99 Random Glucose 189 H Calcium 9.3 Magnesium 2.3 Total Bilirubin AST ALT Alkaline Phosphatase Total Protein Albumin TSH 0.11 L Active Medications Albuterol Sulfate (Ventolin 0.083% Nebulizer Soln -) 1 amp NEB Q4H PRN PRN Reason: SHORT OF BREATH/WHEEZING Last Admin: 04/22/19 23:24 Dose: 1 amp Albuterol/Ipratropium (Duoneb -) 1 amp NEB RQID [facility] Last Admin: 04/23/19 16:30 Dose: 1 amp Amlodipine Besylate (Norvasc -) 10 mg PO DAILY [facility] Last Admin: 04/23/19 11:04 Dose: 10 mg Aspirin (Ecotrin -) 81 mg PO DAILY [facility] Last Admin: 04/23/19 11:05 Dose: 81 mg Atorvastatin Calcium (Lipitor -) 10 mg PO [facility] Benzocaine/Menthol (Cepacol Lozenge -) 1 each MM PRN PRN PRN Reason: SORE THROAT Last Admin: 04/23/19 15:11 Dose: 1 each Enoxaparin Sodium (Lovenox -) 40 mg SQ DAILY [facility] Last Admin: 04/23/19 11:04 Dose: 40 mg Escitalopram Oxalate (Lexapro -) 20 mg PO DAILY [facility] Last Admin: 04/23/19 11:05 Dose: 20 mg Levothyroxine Sodium (Synthroid -) 200 mcg PO DAILY@0700 [facility] Last Admin: 04/23/19 06:48 Dose: 200 mcg Losartan Potassium (Cozaar -) 100 mg PO DAILY [facility] Last Admin: 04/23/19 11:04 Dose: 100 mg Methylprednisolone Sodium Succinate (Solu-Medrol -) 40 mg IVPUSH BID [facility] Last Admin: 04/23/19 11:05 Dose: 40 mg Montelukast Sodium (Singulair -) 10 mg PO HS [facility] Fluticasone/Salmeterol (Advair 100mcg/50mcg -) 1 puff IH BID [facility] Last Admin: 04/23/19 11:05 Dose: 1 puff Zolpidem Tartrate (Ambien -) 5 mg PO HS PRN PRN Reason: INSOMNIA ASSESSMENT/PLAN: 58 y/o F w PMH asthma and thyroid ca s/p resection whom presented to the ED w SOB. Pt had recent treatment with augmentin/azithro and prednisone for 3 days. She is presently experiencing a persistent cough. # Acute asthma exacerbation - Failed outpatient therapy - Need peak flow - Cepacol for cough, refuses robitussin - Medrol 40mg BID, advair, nebs prn and RTC. - Started on singulair - Pulmonary consulted (Dr. Townsend): Advair on d/c (higher dose inhaler), monitor daily PEF (patient does not know her baseline), monitor off ABX, outpatient PFTs, no smoking, will need formal OSAS re-evaluation, O2 as needed - Noted elevated eosinophil count: absolute count 743: should monitor as an outpatient to determine if this may potentially be exacerbating her asthma (low suspicion) # Thyroid ca - On LT4 # HTN - Controlled - Cont home regimen # Dyslipidemia - Cont statin # F/E/N - No standing fluids - Cont. to monitor electrolytes - Regular diet # DVT prophylaxis - Lovenox Shawn Peña MD Visit type - Emergency Visit Emergency Visit: No - New Patient This patient is new to me today: Yes Date on this admission: 04/23/19 - Critical Care Critical Care patient: No - Discharge Referral Referred to [facility] No ATTENDING PHYSICIAN STATEMENT I saw and evaluated the patient. I reviewed the resident's note and discussed the case with the resident. I agree with the resident's findings and plan as documented. SUBJECTIVE: OBJECTIVE: ASSESSMENT AND PLAN:
[2019-04-23] MEDS: ATORVASTATIN CA 10 MG TABLET (FP) PO SCH (22:22)
[2019-04-23] MEDS: MONTELUKAST NA 10 MG TABLET PO SCH (22:22)
[2019-04-23] MEDS: ZOLPIDEM TARTRATE 5 MG TABLET PO PRN (22:22)
[2019-04-24] MEDS: LEVOTHYROXINE NA 200 MCG TABLET PO SCH (06:14)
[2019-04-24] MEDS: ALBUTEROL SO4 2.5/IPRATROPIUM 0.5 INH SOL 3 ML VIAL.NEB. NEB SCH ×4 (07:35→20:14)
[2019-04-24 07:59] LABS: BLOOD UREA NITROGEN 14.5 mg/dL (7-18); CALCIUM 8.9 mg/dL (8.5-10.1); CREATININE 0.8 mg/dL (0.55-1.3); MAGNESIUM 2.5 mg/dL (1.8-2.4); PHOSPHOROUS 3.4 mg/dL (2.5-4.9); POTASSIUM 4.2 mmol/L (3.5-5.1)
[2019-04-24] MEDS: LOSARTAN POTASSIUM 50 MG TABLET (FP) PO SCH (09:44)
[2019-04-24] MEDS: amLODIPine BESYLATE 10 MG TABLET (FP) PO SCH (09:44)
[2019-04-24] MEDS: ASPIRIN COATED 81 MG TABLET.EC PO SCH (09:45)
[2019-04-24] MEDS: BENZOCAINE/MENTH/CETYLPYRD CL 1 EACH LOZENGE MM PRN (09:45)
[2019-04-24] MEDS: ENOXAPARIN NA (PORCINE) 40 MG/0.4 ML DISP.SYRIN SQ SCH (09:45)
[2019-04-24] MEDS: methylPREDNISolone NA SUCC 40 MG/1 ML VIAL IVPUSH SCH ×2 (09:45→21:48)
[2019-04-24] MEDS: ESCITALOPRAM OXALATE 20 MG TABLET (FP) PO SCH (09:45)
[2019-04-24] MEDS: FLUTICASONE/SALMETEROL 100 MCG/50 MCG DISKUS IH SCH ×2 (09:46→21:48)
--- NOTE | 2019-04-24 11:33 | PN ---
Teaching Attending Note Name of Resident: Shawn Peña ATTENDING PHYSICIAN STATEMENT I saw and evaluated the patient. I reviewed the resident's note and discussed the case with the resident. I agree with the resident's findings and plan as documented. SUBJECTIVE:breathing improved. cont to have non productive cough but improving. able to walk over 100ft without getting dyspnic. deneis Cp, fever, chills, N/V/C /D OBJECTIVE: Last Vital Signs Temp Pulse Resp BP Pulse Ox 98.2 F 94 H 18 148/81 97 04/24/19 09:00 04/24/19 09:00 04/24/19 09:00 04/24/19 09:00 04/23/19 21:00 General NAD CV S1 S2 RRR no murmur/rub/gallop Lungs CTA B/L no wheezing. good inspiratory effort abdomen soft NT/ND ASSESSMENT AND PLAN: 58yo F wtih PMH asthma, thryoid ca s/p resection presented to the ER with SOB with recent treatment with augmentin/azithro and prednisone for 3 days 1. Acute asthma exacerbation (has yearly hospitalizations, never been intubated) - failed outpatient therapy. clinically improved. on medrol BID. can likely transition to po tomorrow. will d/w pulm. encouraged inhaler use and medication compliance. willl need outpatient PFT. 2. thyroid ca- on LT4 3. HTN- controlled. cont medications 4. dyslipidemia- statin 5. DVT ppx- lovenox 6. can likely d/c home today with po steroids. awaiting pulm recommendations
--- NOTE | 2019-04-24 14:02 | PN ---
Progress Note (short form) - Note Progress Note: PULMONARY VSS/AFEBRILE AWAITING PEAK FLOW ANICTERIC RHONCHI AND WHEEZES S1S2 BS+ SOFT NO EDEMA LABS/MEDS/NOTES/CXR REVIEWED (1) Sleep apnea Code(s): G47.30 - SLEEP APNEA, UNSPECIFIED (2) Morbid obesity Code(s): E66.01 - MORBID (SEVERE) OBESITY DUE TO EXCESS CALORIES (3) Acute bronchitis Code(s): J20.9 - ACUTE BRONCHITIS, UNSPECIFIED (4) Eosinophilia Code(s): D72.1 - EOSINOPHILIA (5) Asthma exacerbation Code(s): J45.901 - UNSPECIFIED ASTHMA WITH (ACUTE) EXACERBATION Qualifiers: Asthma severity: moderate Asthma persistence: persistent Qualified Code(s ): J45.41 - Moderate persistent asthma with (acute) exacerbation (6) HTN (hypertension) Code(s): I10 - ESSENTIAL (PRIMARY) HYPERTENSION Medrol same dose BD TX Start Singulair Advair Monitor daily PEF (patient does not know her baseline) Monitor off ABX Outpatient PFTs No smoking Will need formal OSAS re-evaluation O2 as needed VTE geovanna CHEEK MD
[2019-04-24] MEDS: ACETAMINOPHEN 325 MG TABLET (FP) PO PRN (17:52)
[2019-04-24] MEDS ORDERED: FAMOTIDINE 20 MG/50 ML IVPB 20 MG/50 ML MG IVPB ONE (21:11)
[2019-04-24] MEDS: MONTELUKAST NA 10 MG TABLET PO SCH (21:47)
[2019-04-24] MEDS: ATORVASTATIN CA 10 MG TABLET (FP) PO SCH (21:47)
[2019-04-24] MEDS: ZOLPIDEM TARTRATE 5 MG TABLET PO PRN (21:54)
[2019-04-25] MEDS: ALBUTEROL SO4 0.083% IH SOL 2.5 MG/3 ML VIAL.NEB. NEB PRN (00:27)
[2019-04-25] MEDS ORDERED: PT OWN MED DRAWER 7, Y5N ONE (01:00)
[2019-04-25] MEDS: BENZOCAINE/MENTH/CETYLPYRD CL 1 EACH LOZENGE MM PRN (01:32)
[2019-04-25] MEDS: LEVOTHYROXINE NA 200 MCG TABLET PO SCH (06:40)
[2019-04-25 07:02] VITALS: TEMP 97.9
[2019-04-25] MEDS: ALBUTEROL SO4 2.5/IPRATROPIUM 0.5 INH SOL 3 ML VIAL.NEB. NEB SCH ×2 (07:46→11:13)
[2019-04-25 09:08] VITALS: BP 143/86; PULSE 92
[2019-04-25] MEDS: ACETAMINOPHEN 325 MG TABLET (FP) PO PRN (09:29)
[2019-04-25] MEDS: LOSARTAN POTASSIUM 50 MG TABLET (FP) PO SCH (09:30)
[2019-04-25] MEDS: ASPIRIN COATED 81 MG TABLET.EC PO SCH (09:30)
[2019-04-25] MEDS: amLODIPine BESYLATE 10 MG TABLET (FP) PO SCH (09:30)
[2019-04-25] MEDS: ENOXAPARIN NA (PORCINE) 40 MG/0.4 ML DISP.SYRIN SQ SCH (09:31)
[2019-04-25] MEDS: ESCITALOPRAM OXALATE 20 MG TABLET (FP) PO SCH (09:34)
[2019-04-25] MEDS: FLUTICASONE/SALMETEROL 100 MCG/50 MCG DISKUS IH SCH (09:41)
--- NOTE | 2019-04-25 09:59 | PN ---
Progress Note (short form) - Note Progress Note: asymptomatic. continues to ahev cough but improving. denie Cp, SOb, fever, chills, N/V/c/D Current Medications Generic Name Dose Route Start Last Admin Trade Name Freq PRN Reason Stop Dose Admin Acetaminophen 650 mg 04/24/19 17:39 04/25/19 09:29 Tylenol - PO 650 mg Q6H PRN Administration Fever Or Pain Albuterol Sulfate 1 amp 04/22/19 22:42 04/25/19 00:27 Ventolin 0.083% Nebulizer Soln - NEB 1 amp Q4H PRN Administration SHORT OF BREATH/WHEEZING Albuterol/Ipratropium 1 amp 04/23/19 08:00 04/25/19 07:46 Duoneb - NEB 1 amp RQID NAMAN Administration Amlodipine Besylate 10 mg 04/23/19 10:00 04/25/19 09:30 Norvasc - PO 10 mg DAILY NAMAN Administration Aspirin 81 mg 04/23/19 10:00 04/25/19 09:30 Ecotrin - PO 81 mg DAILY NAMAN Administration Atorvastatin Calcium 10 mg 04/23/19 22:00 04/24/19 21:47 Lipitor - PO 10 mg HS NAMAN Administration Benzocaine/Menthol 1 each 04/23/19 12:08 04/25/19 01:32 Cepacol Lozenge - MM 1 each PRN PRN Administration SORE THROAT Enoxaparin Sodium 40 mg 04/23/19 10:00 04/25/19 09:31 Lovenox - SQ 40 mg DAILY NAMAN Administration Escitalopram Oxalate 20 mg 04/23/19 10:00 04/25/19 09:34 Lexapro - PO 20 mg DAILY NAMAN Administration Levothyroxine Sodium 200 mcg 04/23/19 07:00 04/25/19 06:40 Synthroid - PO 200 mcg DAILY@0700 NAMAN Administration Losartan Potassium 100 mg 04/23/19 10:00 04/25/19 09:30 Cozaar - PO 100 mg DAILY NAMAN Administration Montelukast Sodium 10 mg 04/23/19 22:00 04/24/19 21:47 Singulair - PO 10 mg HS NAMAN Administration Prednisone 40 mg 04/25/19 10:00 04/25/19 09:34 Deltasone - PO 40 mg DAILY NAMAN Administration Fluticasone/Salmeterol 1 puff 04/22/19 23:59 04/25/19 09:41 Advair 100mcg/50mcg - IH 1 puff BID NAMAN Administration Zolpidem Tartrate 5 mg 04/23/19 04:15 04/24/19 21:54 Ambien - PO 5 mg HS PRN Administration INSOMNIA Last Vital Signs Temp Pulse Resp BP Pulse Ox 97.9 F 92 H 18 143/86 97 04/25/19 09:07 04/25/19 09:07 04/25/19 09:07 04/25/19 09:07 04/24/19 21:00 General NAD CV S1 S2 RRR no murmur/rub/gallop Lungs CTA B/L no wheezing. good inspiratory effort abdomen soft NT/ND ASSESSMENT AND PLAN: 58yo F wtih PMH asthma, thryoid ca s/p resection presented to the ER with SOB with recent treatment with augmentin/azithro and prednisone for 3 days 1. Acute asthma exacerbation (has yearly hospitalizations, never been intubated) - failed outpatient therapy. clinically improved. on medrol BID. switched to prednisone po. was discharged yesterday but as per pt was told to stay. no change in condition was noted. d/c on pred x5 days per pulmonary and inhlaers. encouraged inhlaer compliance. willl need outpatient PFT. 2. thyroid ca- on LT4 3. HTN- controlled. cont medications 4. dyslipidemia- statin 5. DVT ppx- lovenox 6. d/c home Visit type - Emergency Visit Emergency Visit: Yes ED Registration Date: 04/22/19 Care time: The patient presented to the Emergency Department on the above date and was hospitalized for further evaluation of their emergent condition. - New Patient This patient is new to me today: No - Critical Care Critical Care patient: No - Discharge Referral Referred to [facility] Med P.C.: No
[2019-04-25] MEDS ORDERED: predniSONE 20 MG TABLET (UD) PO SCH (10:00)
== END 2019-04-25 10:30 | disposition home or self-care (01) | DRG 141 ==
LOC: JER 17:23 → JERFT 17:23 → JERBED 22:33 → J7W 04-23 02:29
PROVIDERS: ADMIT Internal Medicine; ATTEND Internal Medicine
DX: J45.51 Severe persistent asthma with (acute) exacerbation (principal); E66.01 Morbid (severe) obesity due to excess calories; Z68.41 Body mass index [BMI] 40.0-44.9, adult; D72.1 Eosinophilia; Z91.14 Patient's other noncompliance with medication regimen; I10 Essential (primary) hypertension; E78.5 Hyperlipidemia, unspecified; E03.9 Hypothyroidism, unspecified; C73 Malignant neoplasm of thyroid gland
CPT/HCPCS: 36415; 71046-TC-FY; 80048; 80053; 83735; 84100; 84443; 85025; 93005; 93010; 94640; 97116-GP; 97161-GP; 99282-25

== ENCOUNTER 2019-07-04 13:16 | Emergency (ER) | payer OTHER ==
--- NOTE | 2019-07-04 13:26 | PDOC ---
Attending Attestation - Resident Resident Name: Olive Conn - ED Attending Attestation I have performed the following: I have examined & evaluated the patient, The case was reviewed & discussed with the resident, I agree w/resident's findings & plan, Exceptions are as noted - HPI HPI: 07/04/19 14:26 Patient with chronic osteoarthritis has had a flareup of left knee pain for approximately 2 weeks. More severe the last 3 days despite heavy use of Tylenol and Motrin. No inciting trauma or overuse. Has been seen in the past by Dr. Acevedo for similar pain in the left knee, and has had injections. - Physicial Exam PE: 07/04/19 14:27 Physical exam: There is no appreciable swelling, erythema, warmth, effusion or other deformity. Pulses are full. No distal sensory or motor deficits. No limited range of motion in flexion or extension. No stress tenderness or laxity of the ligaments. Oscar negative. Fully ambulatory. 07/04/19 14:29 - Medical Decision Making 07/04/19 14:28 Assessment: Flareup of osteoarthritis. Plan: Patient has appointment with orthopedist, Dr. Acevedo, in 2 days. Prescription pain medication and follow-up as scheduled. Adequately ambulatory upon discharge to follow-up as directed.
[2019-07-04 13:30] VITALS: BP 146/80; PULSE 85; TEMP 98.4; BMI 41.1
--- NOTE | 2019-07-04 13:31 | PDOC ---
History of Present Illness - General Chief Complaint: Pain Stated Complaint: LEFT KNEE PAIN Time Seen by Provider: 07/04/19 13:25 - History of Present Illness Initial Comments: 07/04/19 13:41 HPI: 58 y/o F with hx of asthma, HLD, HTN, right ankle fx s/p ORIF, right meniscal tear s/p repair, left knee OA presenting with left knee pain worsening over the past 2 weeks. She reports intermittent pain in her left knee and sees ortho and has received steroid injections in the past. Pain is throbbing and is now more constant over the past few days. Pain is non-radiating. She has no sensation changes and no change in ambulatory status. She denies edema, skin changes, fever. Pain is worse on ambulation and improved with rest and elevation PMHx: as noted above ROS: as noted SHx: Denies tobacco use; no alcohol use; no rec drugs Allergies: NKDA ROS: GENERAL/CONSTITUTIONAL: No fever or chills. No weakness. HEAD, EYES, EARS, NOSE AND THROAT: No change in vision. No ear pain or discharge. No sore throat. CARDIOVASCULAR: No chest pain or shortness of breath RESPIRATORY: No cough, wheezing, or hemoptysis. GASTROINTESTINAL: No nausea, vomiting, diarrhea or constipation. GENITOURINARY: No dysuria, frequency, or change in urination. MUSCULOSKELETAL: left knee pain SKIN: No rash NEUROLOGIC: No headache, vertigo, loss of consciousness, or change in strength/ sensation. ENDOCRINE: No increased thirst. No abnormal weight change HEMATOLOGIC/LYMPHATIC: No anemia, easy bleeding, or history of blood clots. ALLERGIC/IMMUNOLOGIC: No hives or skin allergy. PE: GENERAL: Awake, alert, and fully oriented, no acute distress HEAD: No signs of trauma, normocephalic, atraumatic EYES: EOMI, sclera anicteric, conjunctiva clear ENT: Auricles normal inspection, hearing grossly normal, nares patent, oropharynx clear without exudates. Moist mucosa NECK: Normal ROM, no lymphadenopathy LUNGS: No increased work of breathing, symmetrical chest rise, clear to auscultation bilaterally, no wheezes, crackles or rhonchi HEART: Regular rate and rhythm, normal S1 and S2, no murmurs, peripheral pulses 2+ and equal bilaterally. ABDOMEN: Soft, nondistended, nontender, normoactive bowel sounds. No guarding, no rebound. No masses. No CVAT EXTREMITIES: left knee with ttp on lateral patellar aspect with crepitus on passive ROM, no effusion, no erythema, str 5/5, sensation intact, gait normal, anterior and posterior drawer test without laxity, no laxity on varus or valgus motions NEUROLOGICAL: Cranial nerves II through XII grossly intact. Normal speech, normal gait, no focal sensorimotor deficits SKIN: Warm, Dry, normal turgor, no rashes or lesions noted Past History - Past Medical History Allergies/Adverse Reactions: Allergies Allergy/AdvReac Type Severity Reaction Status Date / Time latex Allergy Severe Rash Verified 04/22/19 17:31 Home Medications: Ambulatory Orders Escitalopram Oxalate [Lexapro -] 20 mg PO DAILY 09/05/11 Montelukast Sodium [Singulair] 10 mg PO DAILY 09/05/11 Amlodipine Besylate [Norvasc -] 10 mg PO DAILY 11/06/13 Levothyroxine [Synthroid -] 200 mcg PO DAILY 09/29/15 Albuterol Sulfate Inhaler - [Ventolin HFA Inhaler -] 1 - 2 inh PO Q4H PRN Aspirin [Aspirin EC] 81 mg PO DAILY 12/30/18 Atorvastatin Calcium 10 mg PO DAILY 04/22/19 Cholecalciferol (Vitamin D3) [Vitamin D3] 2,000 units PO DAILY 04/22/19 Fenofibrate,Micronized [Fenofibrate] 134 mg PO DAILY 04/22/19 Losartan Potassium 100 mg PO DAILY 04/22/19 Zolpidem Tartrate [Ambien] 5 mg PO DAILY 04/22/19 Fluticasone Propion/Salmeterol [Fluticasone-Salmeterol 500-50] 1 each IH BID 30 Days #1 blst.w.dev 04/24/19 Clopidogrel Bisulfate [Clopidogrel] 75 mg PO DAILY 07/04/19 Oxycodone HCl/Acetaminophen [Percocet 5-325 mg Tablet] 1 - 2 tab PO Q6H PRN #10 tab MDD 4 07/04/19 Tiotropium Preston [Spiriva Respimat] 1 inh PO DAILY 07/04/19 Anemia: No Asthma: Yes Cancer: Yes (thyroid) Cardiac Disorders: No CVA: No COPD: No CHF: No Dementia: No Diabetes: No GI Disorders: Yes (REFLUX RESOLVED 8 YRS AGO) Disorders: No HTN: Yes Hypercholesterolemia: Yes Liver Disease: No Seizures: No Thyroid Disease: Yes (THYROIDECTOMY) - Surgical History Abdominal Surgery: Yes (Bilateral Salpingo-Oopherectomy) Appendectomy: No Cardiac Surgery: No Cholecystectomy: Yes (11/30/2015) Lung Surgery: No Neurologic Surgery: No Orthopedic Surgery: Yes (ORIF Right Ankle 01/2018) - Immunization History Immunization Up to Date: Yes () - Psycho Social/Smoking Cessation Hx Smoking Status: No Smoking History: Never smoked Have you smoked in the past 12 months: No Number of Cigarettes Smoked Daily: 0 If you are a former smoker, when did you quit?: 32 years ago Information on smoking cessation initiated: No Hx Alcohol Use: No Drug/Substance Use Hx: No Substance Use Type: None Hx Substance Use Treatment: No *Physical Exam - Vital Signs Last Vital Signs Temp Pulse Resp BP Pulse Ox 98.4 F 85 20 146/80 97 07/04/19 13:17 07/04/19 13:17 07/04/19 13:17 07/04/19 13:17 07/04/19 13:17 Medical Decision Making - Medical Decision Making 07/04/19 14:28 58 y/o F with hx of asthma, HLD, HTN, right ankle fx s/p ORIF, right meniscal tear s/p repair, left knee OA presenting with left knee pain worsening over the past 2 weeks. VSS, AF. PE exam largely unremarkable. Likely acute exacerbation of OA. Septic joint unlikely due to afebrile, no skin changes, no effusion, no erythema. -toradol 15mg IM -discussed with patient likely acute on chronic OA pain; patient understands instruction pain meds sent to pharmacy; will followup with existing appt for ortho in 2 days Discharge - Discharge Information Problems reviewed: Yes Clinical Impression/Diagnosis: Left knee pain Qualifiers: Chronicity: unspecified Qualified Code(s): M25.562 - Pain in left knee Condition: Good Disposition: HOME - Follow up/Referral Referrals: Shabana Ahmadi MD [Primary Care Provider] - - Patient Discharge Instructions Patient Printed Discharge Instructions: DI for Osteoarthritis Additional Instructions: Take motrin 600mg every 6-8 hours Take the percocet as prescribed Followup with your orthopedist with pre-existing appointment on Saturday Return to ED if concern for signficant knee swelling, skin changes, fever, fainting - Post Discharge Activity
[2019-07-04] MEDS ORDERED: KETOROLAC TROMETHAMINE 15 MG/ML VIAL IM ONE (14:05)
[2019-07-04] MEDS ORDERED: KETOROLAC TROMETHAMINE 15 MG/ML VIAL ONE (14:19)
== END 2019-07-04 14:44 | disposition home or self-care (01) ==
LOC: FER 13:16
PROC: 3E0233Z Introduction of Anti-inflammatory into Muscle, Percutaneous Approach (ICD-10-PCS; principal; 2019-07-04)
DX: M17.12 Unilateral primary osteoarthritis, left knee (principal); I10 Essential (primary) hypertension; E78.00 Pure hypercholesterolemia, unspecified; Z87.19 Personal history of other diseases of the digestive system; E89.0 Postprocedural hypothyroidism; J45.909 Unspecified asthma, uncomplicated; Z85.850 Personal history of malignant neoplasm of thyroid; Z90.79 Acquired absence of other genital organ(s); Z90.722 Acquired absence of ovaries, bilateral; Z90.49 Acquired absence of other specified parts of digestive tract; Z91.040 Latex allergy status
CPT/HCPCS: 96372; 99281-25

== ENCOUNTER 2020-04-24 17:09 | Emergency (ER) | payer OTHER ==
[2020-04-24 17:14] VITALS: BP 160/68; PULSE 86; TEMP 98.4; BMI 41.1
--- NOTE | 2020-04-24 18:03 | PDOC ---
History of Present Illness - General Chief Complaint: Asthma Stated Complaint: ASTHMA Time Seen by Provider: 04/24/20 18:02 - History of Present Illness Initial Comments: Pt is a 59yo F with PMH asthma, HTN, HLD, depression, thyroid ca s/p thyroidectomy who presents with cough and wheezing x 1 week. States that she has been symptomatic since early March, saw her PCP who prescribed her a 5 day course of steroids and zithromax. States improvement after treatment, but was not at her baseline. Since then has been progressively worsening. Reports associated HYDE and fast heart rate. Denies orthopnea, fevers, chills, chest pain, abdominal pain. Reports 2-3 hospitalizations in the last 5 years, with hospitalization last year. Denies intubations, ICU admissions. Denies known exposure to COVID. PCP: Galdino PMH: see above PSH: thyroidectomy, salpingo-oophorectomy Meds: singulair, spiriva, wixela, albuterol inhaler Allergies: latex (hives) Social: denies DOMENICA Review of Systems CONSTITUTIONAL:denies fever, chills, generalized weakness HEENT:denies rhinorrhea, nasal congestion, sore throat, ear pain, eye pain, visual changes CARDIOVASCULAR: reports fast HR;denies chest pain, syncope, irregular heart rate, lightheadedness, peripheral edema RESPIRATORY:reports cough, shortness of breath, dyspnea with exertion, wheezing; denies orthopnea, hemoptysis GASTROINTESTINAL: denies abdominal pain, nausea, vomiting, diarrhea, constipation, melena, hematochezia GENITOURINARY:denies dysuria, frequency, urgency, hematuria, flank pain MUSCULOSKELETAL:denies myalgia, arthralgia HEMATOLOGIC/IMMUNOLOGIC:denies easy bleeding, easy bruising ENDOCRINE: denies unexplained weight gain, unexplained weight loss NEUROLOGIC:denies headache, loss of consciousness, focal weakness or paresthesias, dizziness, mental status changes, bladder or bowel incontinence SKIN:denies rash, itching, pallor Physical Exam General: awake, alert, fully oriented, in no acute distress, well developed, well nourished Head: normocephalic, atraumatic Eyes: PERRL, EOMI, anicteric sclera, conjunctiva clear ENT: hearing grossly normal, oropharynx clear without exudates, no nasal congestion, moist mucous membranes, no stridor @ neck Neck: supple, normal ROM Lung: decreased air entry b/l, CTA b/l, diffuse expiratory wheezing throughout, rhonchi at b/l bases; speaks full sentences Heart: RRR, normal S1, S2, no murmurs appreciated Abdomen: soft, non tender, normoactive bowel sounds, no guarding, rebound, masses Extremities: normal ROM, no edema, no erythema or tenderness, DP/PT pulses 2+ and symmetric Neuro: CN2-12 grossly intact, moves all extremities, normal speech, sensation intact Skin: warm, dry, no rashes or lesions noted MDM Pt is a 59yo F with PMH asthma, HTN, HLD, depression, thyroid ca s/p thyroidectomy who presents with cough and wheezing x 1 week. DDx including but not limited to: asthma exacerbation, pneumonia, CHF Workup: cxr TX: albuterol, prednisone CXR - no pneumothorax or pleural effusion. midline airway, appropriate vascular markings, no blunting of costophrenic angle, no cardiomegaly, as read by ED staff Re-assessment: Lungs CTA b/l; no wheezing, no rhonchi Sats 95-96% Patient stable for discharge. Informed of imaging results. Given follow up instructions and strict return precautions. Patient expressed understanding and agree to plan Disposition: discharge Past History - Medical History Allergies/Adverse Reactions: Allergies Allergy/AdvReac Type Severity Reaction Status Date / Time latex Allergy Severe Rash Verified 04/24/20 17:14 Home Medications: Ambulatory Orders Escitalopram Oxalate [Lexapro -] 20 mg PO DAILY 09/05/11 Montelukast Sodium [Singulair] 10 mg PO DAILY 09/05/11 Amlodipine Besylate [Norvasc -] 10 mg PO DAILY 11/06/13 Levothyroxine [Synthroid -] 200 mcg PO DAILY 09/29/15 Albuterol Sulfate Inhaler - [Ventolin HFA Inhaler -] 1 - 2 inh PO Q4H PRN 02/06/18 Aspirin [Aspirin EC] 81 mg PO DAILY 12/30/18 Atorvastatin Calcium 10 mg PO DAILY 04/22/19 Cholecalciferol (Vitamin D3) [Vitamin D3] 2,000 units PO DAILY 04/22/19 Fenofibrate,Micronized [Fenofibrate] 134 mg PO DAILY 04/22/19 Losartan Potassium 100 mg PO DAILY 04/22/19 Zolpidem Tartrate [Ambien] 5 mg PO DAILY PRN 04/22/19 Clopidogrel Bisulfate [Clopidogrel] 75 mg PO DAILY 07/04/19 Tiotropium Oxly [Spiriva Respimat] 1 inh PO DAILY 07/04/19 Fluticasone Propion/Salmeterol [Wixela 500-50 Inhub] 1 each IH ASDIR 04/24/20 predniSONE [Deltasone -] 40 mg PO DAILY #5 tablet 04/24/20 Anemia: No Asthma: Yes Cancer: Yes (thyroid) Cardiac Disorders: No CVA: No COPD: Yes CHF: No Dementia: No Diabetes: No GI Disorders: Yes (REFLUX RESOLVED 8 YRS AGO) Disorders: No HTN: Yes Hypercholesterolemia: Yes Liver Disease: No Seizures: No Thyroid Disease: Yes (THYROIDECTOMY) - Surgical History Abdominal Surgery: Yes (Bilateral Salpingo-Oopherectomy) Appendectomy: No Cardiac Surgery: No Cholecystectomy: Yes (11/30/2015) Lung Surgery: No Neurologic Surgery: No Orthopedic Surgery: Yes (ORIF Right Ankle 01/2018) - Reproductive History Is Patient Now?: No - Immunization History Immunization Up to Date: Yes () - Psycho-Social/Smoking History Smoking Status: No Smoking History: Never smoked Have you smoked in the past 12 months: No Number of Cigarettes Smoked Daily: 0 If you are a former smoker, when did you quit?: 32 years ago Information on smoking cessation initiated: No - Substance Abuse Hx (Audit-C & DAST Scrn) How often the patient has a drink containing alcohol: Never Score: In Men: 4 or > Positive; In Women: 3 or > Positive: 0 Screen Result (Pos requires Nsg. Audit-10AR): Negative In the last yr the pt used illegal drug/Rx for NonMed reason: No Score: Yes response is considered Positive: 0 Screen Result (Positive result requires Nsg. DAST-10): Negative *Physical Exam - Vital Signs Last Vital Signs Temp Pulse Resp BP Pulse Ox 98.4 F 86 21 H 160/68 94 L 04/24/20 17:11 04/24/20 17:11 04/24/20 17:11 04/24/20 17:11 04/24/20 17:11 Discharge - Discharge Information Problems reviewed: Yes Clinical Impression/Diagnosis: Asthma exacerbation Qualifiers: Asthma severity: mild Asthma persistence: persistent Qualified Code(s): J45.31 - Mild persistent asthma with (acute) exacerbation Condition: Stable Disposition: HOME - Admission No - Additional Discharge Information Prescriptions: predniSONE [Deltasone -] 40 mg PO DAILY #5 tablet - Follow up/Referral Referrals: Shabana Ahmadi MD [Primary Care Provider] - - Patient Discharge Instructions Patient Printed Discharge Instructions: DI for Asthma -- Adult Additional Instructions: You came into the ER with cough, shortness of breath. In the ED, you were evaluated with physical exam, chest xray. Your chest xray was normal. We gave you 1 dose of prednisone and albuterol, with improvement in your symptoms. You do not appear to be an acute need for immediate hospitalization You were advised to follow up with your primary care doctor within 1 week. You were given a prescription for prednisone 40mg. Take this once a day for 5 days. Come back to the ER immediately with any new or worsening concerns, such as feeling increasingly short of breath, if you do not improve after your albuterol, or if you have chest pain or fevers. Thank you for coming to the [facility] ER. We hope you feel better soon! - Post Discharge Activity
[2020-04-24] MEDS ORDERED: predniSONE 20 MG TABLET (UD) PO ONE (18:36)
[2020-04-24] MEDS ORDERED: ALBUTEROL SO4 HFA INHALER IH ONE (18:45)
[2020-04-24] MEDS ORDERED: ALBUTEROL SO4 HFA INHALER IH SCH (18:45)
[2020-04-24] MEDS ORDERED: predniSONE 20 MG TABLET (UD) ONE (18:45)
--- NOTE | 2020-04-24 18:49 | PDOC ---
Attending Attestation - Resident Resident Name: Elieser Love - ED Attending Attestation I have performed the following: I have examined & evaluated the patient, The case was reviewed & discussed with the resident, I agree w/resident's findings & plan, Exceptions are as noted - HPI HPI: 59 yo F history asthma, HTN, HL, depression, thyroid CA s/p thyroidectomy presents with cough and wheezing for past 1 week. She states she had similar symptoms in March, was prescribed prednisone and a z-pack, improved temporarily, but now her symptoms have returned. Now she is back to having wheezing and nonproductive cough. Denies fever, chills. No known sick contacts, no visitors. - Physicial Exam PE: GENERAL: Awake, alert, and fully oriented, in no acute distress HEAD: No signs of trauma EYES: PERRLA, EOMI, sclera anicteric, conjunctiva clear ENT: Auricles normal inspection, hearing grossly normal, nares patent, oropharynx clear without exudates. Moist mucosa NECK: Normal ROM, supple, no lymphadenopathy, JVD, or masses LUNGS: Good air entry B/L with scattered rhonchi, diffuse exp wheezes, prolonged expiratory phase. Speaking full sentences. HEART: Regular rate and rhythm, normal S1 and S2, no murmurs, rubs or gallops ABDOMEN: Soft, nontender, normoactive bowel sounds. No guarding, no rebound. No masses EXTREMITIES: Normal range of motion, no edema. No clubbing or cyanosis. No cords, erythema, or tenderness NEUROLOGICAL: Cranial nerves II through XII grossly intact. Normal speech, normal gait. Motor and sensation intact SKIN: Warm, dry, normal turgor, no rashes or lesions noted. - Medical Decision Making Pt with asthma exacerbation. Will give nebs and steroids and reassess. Will also obtain CXR to r/o pna, swab for COVID. DC home if improved. Discharge - Discharge Information Problems reviewed: Yes Clinical Impression/Diagnosis: Asthma exacerbation Qualifiers: Asthma severity: mild Asthma persistence: persistent Qualified Code(s): J45.31 - Mild persistent asthma with (acute) exacerbation Condition: Stable Disposition: HOME - Additional Discharge Information Prescriptions: predniSONE [Deltasone -] 40 mg PO DAILY #5 tablet - Follow up/Referral Referrals: Shabana Ahmadi MD [Primary Care Provider] - - Patient Discharge Instructions Patient Printed Discharge Instructions: DI for Asthma -- Adult Additional Instructions: You came into the ER with cough, shortness of breath. In the ED, you were evaluated with physical exam, chest xray. Your chest xray was normal. We gave you 1 dose of prednisone and albuterol, with improvement in your symptoms. You do not appear to be an acute need for immediate hospitalization You were advised to follow up with your primary care doctor within 1 week. You were given a prescription for prednisone 40mg. Take this once a day for 5 days. Come back to the ER immediately with any new or worsening concerns, such as feeling increasingly short of breath, if you do not improve after your albuterol, or if you have chest pain or fevers. Thank you for coming to the [facility] ER. We hope you feel better soon! - Post Discharge Activity
--- NOTE | 2020-04-25 12:45 | EKG ---
Test Reason : Blood Pressure : / mmHG Vent. Rate : 080 BPM Atrial Rate : 080 BPM P-R Int : 166 ms QRS Dur : 096 ms QT Int : 406 ms P-R-T Axes : 059 049 051 degrees QTc Int : 468 ms NORMAL SINUS RHYTHM POSSIBLE ANTERIOR INFARCT , AGE UNDETERMINED ABNORMAL ECG WHEN COMPARED WITH ECG OF 22-APR-2019 22:42, NO SIGNIFICANT CHANGE WAS FOUND Confirmed by Osmel Zarate ([id number]) on 04/25/2020 12:45:05 PM Referred By: Confirmed By:Osmel Zarate
== END 2020-04-24 20:25 | disposition home or self-care (01) ==
LOC: JER 17:09
DX: J45.31 Mild persistent asthma with (acute) exacerbation (principal)
CPT/HCPCS: 71046-TC-FY; 93005; 93010; 99285-25; U0003

== ENCOUNTER 2020-07-01 18:51 | Emergency (ER) | payer OTHER ==
[2020-07-01 19:17] VITALS: BP 163/80; TEMP 98.1; BMI 41.1
[2020-07-01] MEDS ORDERED: methylPREDNISolone NA SUCC 125 MG/2 ML VIAL IVPUSH ONE (19:53)
[2020-07-01] MEDS ORDERED: ALBUTEROL SO4 HFA INHALER IH ONE ×2 (19:53→19:59)
[2020-07-01] MEDS ORDERED: methylPREDNISolone NA SUCC 125 MG/2 ML VIAL ONE (20:04)
[2020-07-01] MEDS ORDERED: ALBUTEROL SO4 2.5/IPRATROPIUM 0.5 INH SOL 3 ML VIAL.NEB. NEB ONE (20:40)
[2020-07-01] MEDS: ALBUTEROL SO4 2.5/IPRATROPIUM 0.5 INH SOL 3 ML VIAL.NEB. NEB SCH ×4 (20:42→21:07)
[2020-07-01 20:44] LABS: EOS % 0.2 % (0-4.5); HEMATOCRIT 39.3 % (32.4-45.2); MCH 30.8 pg (25.7-33.7); MCHC 33.2 g/dl (32.0-36.0); MEAN CELL VOLUME 92.9 fl (80-96); MEAN PLT VOLUME 8.9 fl (7.5-11.1); MONO % 0.8 % (3.8-10.2); PLATELET COUNT 290 K/MM3 (134-434); RBC 4.23 M/mm3 (3.60-5.2); RDW 13.1 % (11.6-15.6)
[2020-07-01 20:53] LABS: CHLORIDE 107 mmol/L (98-107); SODIUM 136 mmol/L (136-145)
[2020-07-01 20:55] LABS: CALCIUM 9.4 mg/dL (8.5-10.1)
[2020-07-01 20:56] LABS: ALBUMIN 3.9 g/dl (3.4-5.0); BLOOD UREA NITROGEN 14.7 mg/dL (7-18); CO2 25 mmol/L (21-32); GLUCOSE,RANDOM 164 mg/dL (74-106)
[2020-07-01 20:59] LABS: SGOT/AST 108 U/L (15-37)
[2020-07-01 21:00] LABS: BILIRUBIN,TOTAL 0.3 mg/dL (0.2-1)
[2020-07-01 21:02] LABS: ALK PHOS 68 U/L (45-117)
[2020-07-01 21:34] LABS: ANION GAP 3 MMOL/L (8-16); SGPT/ALT 49 U/L (13-61)
[2020-07-01 21:37] LABS: POTASSIUM 8.2 mmol/L (3.5-5.1)
[2020-07-01 22:50] LABS: POTASSIUM 3.4 mmol/L (3.5-5.1)
[2020-07-01 22:51] LABS: CALCIUM 9.4 mg/dL (8.5-10.1)
[2020-07-01 22:52] LABS: BLOOD UREA NITROGEN 14.1 mg/dL (7-18)
[2020-07-01 22:55] LABS: CREATININE 1.1 mg/dL (0.55-1.3)
[2020-07-01 23:27] VITALS: PULSE 110
== END 2020-07-01 23:27 | disposition home or self-care (01) ==
LOC: JER 18:51
PROC: 3E0F7GC Introduction of Other Therapeutic Substance into Respiratory Tract, Via Natural or Artificial Opening (ICD-10-PCS; principal; 2020-07-01)
PROC: 3E033NZ Introduction of Analgesics, Hypnotics, Sedatives into Peripheral Vein, Percutaneous Approach (ICD-10-PCS; 2020-07-01)
DX: J45.41 Moderate persistent asthma with (acute) exacerbation (principal); R74.8 Abnormal levels of other serum enzymes
CPT/HCPCS: 36415; 71046-TC-FY; 80048; 80053; 82550; 82553; 83735; 84484; 85025; 93005; 93010; 99285-25

== ENCOUNTER 2020-08-03 04:42 | Day surgery (SDC) | payer OTHER ==
[2020-08-02 16:14] VITALS: BMI 41.1
[~2020-08-03 04:42] MED LIST: BSS (NA/CA/MG/K) BALANCED SALT SOLUTION OPHTH SOLN 15 ML BOTTLE OS ONE; CHONDROITIN SU A/HYALUR SOD 1 KIT IO ONE; EPINEPHrine/PF 1 MG/1 ML (1:1,000) AMPULE SQ ONE; LIDOCAINE HCL 1% PRESERVATIVE FREE - 30ML VIAL IO ONE; POVIDONE-IODINE 5% OPHTHALMIC PREP 30 ML SOLUTION OS ONE; TETRACAINE 0.5% OPHTH SOLN 2 ML BOTTLE OS ONE
[2020-08-03] MEDS ORDERED: TETRACAINE 0.5% OPHTH SOLN 2 ML BOTTLE ONE (07:17)
[2020-08-03] MEDS ORDERED: TRYPAN BLUE 0.5 ML DISP.SYRIN ONE (07:17)
[2020-08-03] MEDS ORDERED: BUPIVACAINE HCL/PF 0.75% 10 ML VIAL ONE (07:17)
[2020-08-03] MEDS ORDERED: POVIDONE-IODINE 5% OPHTHALMIC PREP 30 ML SOLUTION ONE (07:17)
[2020-08-03] MEDS ORDERED: LIDOCAINE HCL/PF 1% SDV 5ML VIAL ONE (07:17)
[2020-08-03] MEDS ORDERED: EPINEPHrine/PF 1 MG/1 ML (1:1,000) AMPULE ONE (07:17)
[2020-08-03] MEDS ORDERED: LIDOCAINE HCL/PF 2% SDV 5ML VIAL ONE (07:17)
[2020-08-03] MEDS ORDERED: CHONDROITIN SU A/HYALUR SOD 1 KIT ONE (07:21)
[2020-08-03] MEDS: CYCLOPENTOLATE HCL 1% OPHTH SOLN 2 ML BOTTLE OP SCH ×3 (07:25→07:44)
[2020-08-03] MEDS: PHENYLEPHRINE 2.5% OPHTH SOLN 15 ML BOTTLE OP SCH ×3 (07:25→07:43)
[2020-08-03] MEDS: OFLOXACIN 0.3% OPHTHALMIC SOLUTION 5 ML BOTTLE OP SCH ×3 (07:25→07:44)
[2020-08-03] MEDS: KETOROLAC TROMETHAMINE 0.5% EYE DROP 1 DROP DROPS OP SCH ×3 (07:25→07:44)
[2020-08-03] MEDS: TROPICAMIDE 1% OPHTH SOLN 15 ML BOTTLE OP SCH ×3 (07:25→07:43)
[2020-08-03] MEDS ORDERED: TROPICAMIDE 1% OPHTH SOLN 15 ML BOTTLE ONE (07:28)
[2020-08-03] MEDS ORDERED: KETOROLAC TROMETHAMINE 0.5% EYE DROP 1 DROP DROPS ONE (07:28)
[2020-08-03] MEDS ORDERED: CYCLOPENTOLATE HCL 1% OPHTH SOLN 2 ML BOTTLE ONE (07:29)
[2020-08-03] MEDS ORDERED: OFLOXACIN 0.3% OPHTHALMIC SOLUTION 5 ML BOTTLE ONE (07:29)
[2020-08-03] MEDS ORDERED: ACETAMINOPHEN 325 MG TABLET (FP) PO PRN (08:23)
[2020-08-03] MEDS ORDERED: MIDAZOLAM HCL 2 MG/2 ML SINGLE DOSE VIAL ONE ×2 (09:34→09:39)
[2020-08-03] MEDS ORDERED: TETRACAINE 0.5% OPHTH SOLN 2 ML BOTTLE OS ONE (09:39)
[2020-08-03] MEDS ORDERED: POVIDONE-IODINE 5% OPHTHALMIC PREP 30 ML SOLUTION OS ONE (09:40)
[2020-08-03] MEDS ORDERED: LIDOCAINE HCL 1% PRESERVATIVE FREE - 30ML VIAL IO ONE (09:47)
[2020-08-03] MEDS ORDERED: BSS (NA/CA/MG/K) BALANCED SALT SOLUTION OPHTH SOLN 15 ML BOTTLE OS ONE (09:47)
[2020-08-03] MEDS ORDERED: CHONDROITIN SU A/HYALUR SOD 1 KIT IO ONE (09:47)
[2020-08-03] MEDS ORDERED: EPINEPHrine/PF 1 MG/1 ML (1:1,000) AMPULE SQ ONE (09:54)
[2020-08-03 10:30] VITALS: TEMP 97
[2020-08-03 12:16] VITALS: BP 124/67; PULSE 70
== END 2020-08-03 12:18 | disposition home or self-care (01) ==
LOC: JASU-SURG 04:42
PROVIDERS: ATTEND Ophthalmology
PROC: 08RK3JZ Replacement of Left Lens with Synthetic Substitute, Percutaneous Approach (ICD-10-PCS; principal; 2020-08-03 09:00)
DX: H26.9 Unspecified cataract (principal)

== ENCOUNTER 2021-04-19 04:21 | Day surgery (SDC) | payer OTHER ==
[2021-04-17 13:48] VITALS: BMI 41.1
[~2021-04-19 04:21] MED LIST changes: +ACETAMINOPHEN 325 MG TABLET (FP) PO PRN; +BSS (NA/CA/MG/K) BALANCED SALT SOLUTION OPHTH SOLN 15 ML BOTTLE IO ONE; -BSS (NA/CA/MG/K) BALANCED SALT SOLUTION OPHTH SOLN 15 ML BOTTLE OS ONE; +EPINEPHrine/PF 1 MG/1 ML (1:1,000) AMPULE IO ONE; -EPINEPHrine/PF 1 MG/1 ML (1:1,000) AMPULE SQ ONE; -POVIDONE-IODINE 5% OPHTHALMIC PREP 30 ML SOLUTION OS ONE; +TETRACAINE 0.5% OPHTH SOLN 2 ML BOTTLE OD ONE; -TETRACAINE 0.5% OPHTH SOLN 2 ML BOTTLE OS ONE
[2021-04-19] MEDS ORDERED: TROPICAMIDE 1% OPHTH SOLN 15 ML BOTTLE ONE (07:05)
[2021-04-19] MEDS ORDERED: OFLOXACIN 0.3% OPHTHALMIC SOLUTION 5 ML BOTTLE ONE (07:05)
[2021-04-19] MEDS ORDERED: KETOROLAC TROMETHAMINE 0.5% EYE DROP 1 DROP DROPS ONE (07:06)
[2021-04-19] MEDS ORDERED: PHENYLEPHRINE 2.5% OPTHALMIC DROP BOTTLE ONE (07:06)
[2021-04-19] MEDS ORDERED: CYCLOPENTOLATE HCL 1% OPHTH SOLN 2 ML BOTTLE ONE (07:06)
[2021-04-19] MEDS: PHENYLEPHRINE 2.5% OPHTH SOLN 15 ML BOTTLE OP SCH ×3 (07:30→07:47)
[2021-04-19] MEDS: KETOROLAC TROMETHAMINE 0.5% EYE DROP 1 DROP DROPS OP SCH ×3 (07:30→07:47)
[2021-04-19] MEDS: TROPICAMIDE 1% OPHTH SOLN 15 ML BOTTLE OP SCH ×3 (07:30→07:46)
[2021-04-19] MEDS: CYCLOPENTOLATE HCL 1% OPHTH SOLN 2 ML BOTTLE OP SCH ×3 (07:30→07:47)
[2021-04-19] MEDS: OFLOXACIN 0.3% OPHTHALMIC SOLUTION 5 ML BOTTLE OP SCH ×3 (07:30→07:47)
[2021-04-19] MEDS ORDERED: MIDAZOLAM HCL 2 MG/2 ML SINGLE DOSE VIAL ONE (07:47)
[2021-04-19] MEDS ORDERED: TETRACAINE 0.5% OPHTH SOLN 2 ML BOTTLE OD ONE (09:09)
[2021-04-19] MEDS ORDERED: POVIDONE-IODINE 5% OPHTHALMIC PREP 30 ML SOLUTION OD ONE (09:10)
[2021-04-19] MEDS ORDERED: BSS (NA/CA/MG/K) BALANCED SALT SOLUTION OPHTH SOLN 15 ML BOTTLE IO ONE (09:18)
[2021-04-19] MEDS ORDERED: CHONDROITIN SU A/HYALUR SOD 1 KIT IO ONE (09:20)
[2021-04-19] MEDS ORDERED: LIDOCAINE HCL 1% PRESERVATIVE FREE - 30ML VIAL IO ONE (09:20)
[2021-04-19] MEDS ORDERED: EPINEPHrine/PF 1 MG/1 ML (1:1,000) AMPULE IO ONE (09:26)
[2021-04-19 11:55] VITALS: TEMP 97.8
[2021-04-19 11:57] VITALS: BP 130/60; PULSE 76
== END 2021-04-19 11:58 | disposition home or self-care (01) ==
LOC: JASU-SURG 04:21
PROVIDERS: ATTEND Ophthalmology
PROC: 08RJ3JZ Replacement of Right Lens with Synthetic Substitute, Percutaneous Approach (ICD-10-PCS; principal; 2021-04-19 09:00)
DX: H26.9 Unspecified cataract (principal)

== ENCOUNTER 2022-07-13 14:35 | Emergency (ER) | payer OTHER ==
[2022-07-13 14:42] VITALS: PULSE 84; TEMP 98.7; BMI 42.0
[2022-07-13] MEDS ORDERED: ALBUTEROL SO4 2.5/IPRATROPIUM 0.5 INH SOL 3 ML VIAL.NEB. NEB ONE ×3 (17:13→18:56)
[2022-07-13] MEDS ORDERED: ALBUTEROL SO4 HFA INHALER IH ONE ×2 (17:29→17:54)
[2022-07-13] MEDS ORDERED: DEXAMETHASONE SOD PHOSPHATE 10 MG/1 ML VIAL IVPUSH ONE (18:26)
[2022-07-13 18:39] LABS: BASO % 0.7 % (0-2.0); EOS % 0.3 % (0-4.5); HEMATOCRIT 39.2 % (32.4-45.2); HEMOGLOBIN 13.1 GM/dL (10.7-15.3); LYMPH % 32.8 % (8-40); MCH 29.9 pg (25.7-33.7); MCHC 33.5 g/dl (32.0-36.0); MEAN CELL VOLUME 89.2 fl (80-96); MEAN PLT VOLUME 8.3 fl (7.5-11.1); NEUT % 57.2 % (42.8-82.8); PLATELET COUNT 350 10^3/uL (134-434); RDW 12.6 % (11.6-15.6); WHITE BLOOD COUNT 10.2 K/mm3 (4.0-10.0)
[2022-07-13 18:55] LABS: ALBUMIN 3.8 g/dl (3.4-5.0); BLOOD UREA NITROGEN 11.8 mg/dL (7-18)
[2022-07-13] MEDS ORDERED: DEXAMETHASONE SOD PHOSPHATE 10 MG/1 ML VIAL ONE (18:57)
[2022-07-13 18:58] LABS: CREATININE 0.7 mg/dL (0.55-1.3)
[2022-07-13 19:00] LABS: BILIRUBIN,TOTAL 0.4 mg/dL (0.2-1); TOT PROT 7.5 g/dl (6.4-8.2)
[2022-07-13] MEDS ORDERED: POTASSIUM CHLORIDE TABS 10 MEQ TABLET.ER (FP) PO ONE (19:32)
[2022-07-13] MEDS ORDERED: POTASSIUM CHLORIDE TABS 20 MEQ TABLET.ER (FP) PO ONE (20:04)
[2022-07-13 21:33] VITALS: BP 133/78; RESP 20
== END 2022-07-13 20:51 | disposition home or self-care (01) ==
LOC: JER 14:35
PROC: 3E033GC Introduction of Other Therapeutic Substance into Peripheral Vein, Percutaneous Approach (ICD-10-PCS; principal; 2022-07-13)
PROC: 3E0F7GC Introduction of Other Therapeutic Substance into Respiratory Tract, Via Natural or Artificial Opening (ICD-10-PCS; 2022-07-13)
DX: J45.21 Mild intermittent asthma with (acute) exacerbation (principal)
CPT/HCPCS: 0241U-QW; 36415; 71046-TC-FY; 80053; 84484; 85025; 93005; 93010; 99285-25; J1100

== ENCOUNTER 2022-10-13 17:36 | Inpatient (IN) | payer OTHER ==
[2022-10-13] MEDS ORDERED: methylPREDNISolone NA SUCC 125 MG/2 ML VIAL IVPUSH ONE (18:41)
[2022-10-13] MEDS ORDERED: ALBUTEROL SO4 2.5/IPRATROPIUM 0.5 INH SOL 3 ML VIAL.NEB. NEB ONE ×3 (18:41→19:56)
[2022-10-13] MEDS ORDERED: methylPREDNISolone NA SUCC 125 MG/2 ML VIAL ONE (19:08)
[2022-10-13 19:26] LABS: BASO % 1.6 % (0-2.0); EOS % 7.4 % (0-4.5); HEMATOCRIT 38.3 % (32.4-45.2); HEMOGLOBIN 13.7 GM/dL (10.7-15.3); MCH 31.7 pg (25.7-33.7); MCHC 35.7 g/dl (32.0-36.0); MEAN CELL VOLUME 88.7 fl (80-96); MEAN PLT VOLUME 7.5 fl (7.5-11.1); MONO % 6.8 % (3.8-10.2); NEUT % 55.2 % (42.8-82.8); PLATELET COUNT 362 10^3/uL (134-434); RBC 4.33 M/mm3 (3.60-5.2); RDW 13.9 % (11.6-15.6)
[2022-10-13 19:46] LABS: CALCIUM 8.5 mg/dL (8.5-10.1)
[2022-10-13 19:47] LABS: ALBUMIN 3.5 g/dl (3.4-5.0); BLOOD UREA NITROGEN 5.5 mg/dL (7-18)
[2022-10-13 19:50] LABS: CREATININE 0.7 mg/dL (0.55-1.3)
[2022-10-13 19:52] LABS: BILIRUBIN,TOTAL 0.4 mg/dL (0.2-1)
[2022-10-13 19:55] LABS: N-TERMINAL BNP 31.1 pg/ml (5-125)
[2022-10-13] MEDS: ALBUTEROL SO4 2.5/IPRATROPIUM 0.5 INH SOL 3 ML VIAL.NEB. NEB SCH (19:59)
[2022-10-14 07:21] LABS: HEMATOCRIT 38.1 % (32.4-45.2); HEMOGLOBIN 13.2 GM/dL (10.7-15.3); MCH 30.8 pg (25.7-33.7); MCHC 34.7 g/dl (32.0-36.0); MEAN CELL VOLUME 88.9 fl (80-96); MEAN PLT VOLUME 7.9 fl (7.5-11.1); PLATELET COUNT 344 10^3/uL (134-434); RBC 4.29 M/mm3 (3.60-5.2); RDW 13.5 % (11.6-15.6); WHITE BLOOD COUNT 12.1 K/mm3 (4.0-10.0)
[2022-10-14] MEDS: LEVOTHYROXINE NA 100 MCG TABLET (FP) PO SCH (07:55)
[2022-10-14 08:52] LABS: BLOOD UREA NITROGEN 12.2 mg/dL (7-18)
[2022-10-14 08:56] LABS: CREATININE 0.9 mg/dL (0.55-1.3)
[2022-10-14 08:58] LABS: CALCIUM 9.2 mg/dL (8.5-10.1)
[2022-10-14 08:59] LABS: MAGNESIUM 1.8 mg/dL (1.8-2.4)
[2022-10-14] MEDS ORDERED: LOSARTAN POTASSIUM 50 MG TABLET PO ONE (09:45)
[2022-10-14] MEDS ORDERED: amLODIPine BESYLATE 10 MG TABLET (FP) PO ONE (09:45)
[2022-10-14] MEDS ORDERED: amLODIPine BESYLATE 10 MG TABLET (FP) ONE (09:50)
[2022-10-14] MEDS ORDERED: LOSARTAN POTASSIUM 50 MG TABLET ONE (09:50)
[2022-10-14] MEDS ORDERED: ENOXAPARIN NA (PORCINE) 40 MG/0.4 ML DISP.SYRIN SQ ONE (09:51)
[2022-10-14] MEDS ORDERED: CLOPIDOGREL BISULFATE 75 MG TABLET (FP) ONE (09:51)
[2022-10-14] MEDS ORDERED: ACETAMINOPHEN 325 MG TABLET (FP) ONE (09:51)
[2022-10-14] MEDS ORDERED: methylPREDNISolone NA SUCC 40 MG/1 ML VIAL ONE (09:51)
[2022-10-14] MEDS ORDERED: methylPREDNISolone NA SUCC 40 MG/1 ML VIAL IVPUSH SCH (10:00)
[2022-10-14] MEDS: ACETAMINOPHEN 325 MG TABLET (FP) PO PRN ×2 (10:15→15:05)
[2022-10-14] MEDS: CLOPIDOGREL BISULFATE 75 MG TABLET (FP) PO SCH (10:16)
[2022-10-14] MEDS: ENOXAPARIN NA (PORCINE) 40 MG/0.4 ML DISP.SYRIN SQ SCH (10:16)
[2022-10-14 13:17] VITALS: BMI 42.8
[2022-10-14] MEDS ORDERED: ALBUTEROL SO4 0.083% IH SOL 2.5 MG/3 ML VIAL.NEB. NEB PRN (13:45)
[2022-10-14] MEDS: methylPREDNISolone NA SUCC 40 MG/1 ML VIAL IVPUSH SCH ×2 (13:50→17:57)
[2022-10-14] MEDS: FLUTICASONE/UMECLIDIN/VILANTER(200-62.5-25 TRELEGY ELLIPTA) INAHLER IH SCH (14:19)
[2022-10-14 18:46] VITALS: RESP 18
[2022-10-14] MEDS ORDERED: amLODIPine BESYLATE 10 MG TABLET (FP) PO SCH (22:00)
[2022-10-14] MEDS ORDERED: ATORVASTATIN CA 10 MG TABLET (FP) PO SCH (22:00)
[2022-10-14] MEDS ORDERED: LOSARTAN POTASSIUM 50 MG TABLET PO SCH (22:00)
[2022-10-14] MEDS: MONTELUKAST NA 10 MG TABLET PO SCH (22:18)
[2022-10-14] MEDS: FENOFIBRIC ACID 135 MG CAP PO SCH (22:18)
[2022-10-14] MEDS: ESCITALOPRAM OXALATE 20 MG TABLET PO SCH (22:18)
[2022-10-15] MEDS: methylPREDNISolone NA SUCC 40 MG/1 ML VIAL IVPUSH SCH ×3 (02:39→17:58)
[2022-10-15] MEDS: ACETAMINOPHEN 325 MG TABLET (FP) PO PRN (02:41)
[2022-10-15] MEDS: LEVOTHYROXINE NA 100 MCG TABLET (FP) PO SCH (06:07)
[2022-10-15] MEDS: ALBUTEROL SO4 0.083% IH SOL 2.5 MG/3 ML VIAL.NEB. NEB SCH ×4 (08:40→20:22)
[2022-10-15 09:18] LABS: BASO % 0.1 % (0-2.0); HEMATOCRIT 37.1 % (32.4-45.2); HEMOGLOBIN 12.8 GM/dL (10.7-15.3); LYMPH % 8.4 % (8-40); MCH 30.8 pg (25.7-33.7); MCHC 34.5 g/dl (32.0-36.0); MEAN CELL VOLUME 89.1 fl (80-96); MEAN PLT VOLUME 8.4 fl (7.5-11.1); MONO % 1.6 % (3.8-10.2); NEUT % 89.9 % (42.8-82.8); PLATELET COUNT 352 10^3/uL (134-434); RBC 4.16 M/mm3 (3.60-5.2); RDW 13.6 % (11.6-15.6); WHITE BLOOD COUNT 13.5 K/mm3 (4.0-10.0)
[2022-10-15] MEDS: FLUTICASONE/UMECLIDIN/VILANTER(200-62.5-25 TRELEGY ELLIPTA) INAHLER IH SCH (09:27)
[2022-10-15] MEDS: ENOXAPARIN NA (PORCINE) 40 MG/0.4 ML DISP.SYRIN SQ SCH (09:43)
[2022-10-15] MEDS: LOSARTAN POTASSIUM 50 MG TABLET PO SCH (09:46)
[2022-10-15] MEDS: amLODIPine BESYLATE 10 MG TABLET (FP) PO SCH (09:46)
[2022-10-15 09:47] LABS: CALCIUM 9.3 mg/dL (8.5-10.1)
[2022-10-15] MEDS: CLOPIDOGREL BISULFATE 75 MG TABLET (FP) PO SCH (09:47)
[2022-10-15 09:48] LABS: ALBUMIN 3.5 g/dl (3.4-5.0); BLOOD UREA NITROGEN 14.2 mg/dL (7-18); MAGNESIUM 2.2 mg/dL (1.8-2.4)
[2022-10-15 09:51] LABS: CREATININE 0.8 mg/dL (0.55-1.3); PHOSPHOROUS 3.1 mg/dL (2.5-4.9)
[2022-10-15 09:52] LABS: TOT PROT 6.9 g/dl (6.4-8.2)
[2022-10-15 09:53] LABS: BILIRUBIN,TOTAL 0.4 mg/dL (0.2-1)
[2022-10-15] MEDS: FENOFIBRIC ACID 135 MG CAP PO SCH (22:43)
[2022-10-15] MEDS: MELATONIN 1 MG TABLET PO SCH (22:43)
[2022-10-15] MEDS: ESCITALOPRAM OXALATE 20 MG TABLET PO SCH (22:44)
[2022-10-15] MEDS: MONTELUKAST NA 10 MG TABLET PO SCH (22:44)
[2022-10-16] MEDS: methylPREDNISolone NA SUCC 40 MG/1 ML VIAL IVPUSH SCH ×3 (02:28→17:22)
[2022-10-16] MEDS: LEVOTHYROXINE NA 100 MCG TABLET (FP) PO SCH (07:01)
[2022-10-16] MEDS: ALBUTEROL SO4 0.083% IH SOL 2.5 MG/3 ML VIAL.NEB. NEB SCH ×4 (07:57→19:51)
[2022-10-16] MEDS: amLODIPine BESYLATE 10 MG TABLET (FP) PO SCH (09:17)
[2022-10-16] MEDS: ACETAMINOPHEN 325 MG TABLET (FP) PO PRN ×2 (09:17→17:21)
[2022-10-16] MEDS: LOSARTAN POTASSIUM 50 MG TABLET PO SCH (09:17)
[2022-10-16] MEDS: ENOXAPARIN NA (PORCINE) 40 MG/0.4 ML DISP.SYRIN SQ SCH (09:18)
[2022-10-16] MEDS: CLOPIDOGREL BISULFATE 75 MG TABLET (FP) PO SCH (09:18)
[2022-10-16] MEDS: FLUTICASONE/UMECLIDIN/VILANTER(200-62.5-25 TRELEGY ELLIPTA) INAHLER IH SCH (09:18)
[2022-10-16] MEDS ORDERED: PANTOPRAZOLE 40 MG TABLET PO SCH (10:00)
[2022-10-16] MEDS ORDERED: predniSONE 20 MG TABLET (UD) PO SCH (10:00)
[2022-10-16] MEDS: FAMOTIDINE 20 MG TABLET PO SCH ×2 (12:00→21:53)
[2022-10-16] MEDS: ESCITALOPRAM OXALATE 20 MG TABLET PO SCH (21:53)
[2022-10-16] MEDS: MELATONIN 1 MG TABLET PO SCH (21:53)
[2022-10-16] MEDS: MONTELUKAST NA 10 MG TABLET PO SCH (21:53)
[2022-10-16] MEDS: FENOFIBRIC ACID 135 MG CAP PO SCH (21:53)
[2022-10-17] MEDS: methylPREDNISolone NA SUCC 40 MG/1 ML VIAL IVPUSH SCH ×2 (01:26→10:17)
[2022-10-17] MEDS: LEVOTHYROXINE NA 100 MCG TABLET (FP) PO SCH (06:06)
[2022-10-17] MEDS: ACETAMINOPHEN 325 MG TABLET (FP) PO PRN (06:16)
[2022-10-17] MEDS ORDERED: CLOPIDOGREL BISULFATE 75 MG TABLET (FP) PO SCH (07:00)
[2022-10-17] MEDS: ALBUTEROL SO4 0.083% IH SOL 2.5 MG/3 ML VIAL.NEB. NEB SCH ×2 (07:56→12:17)
[2022-10-17] MEDS: LOSARTAN POTASSIUM 50 MG TABLET PO SCH (10:16)
[2022-10-17] MEDS: FLUTICASONE/UMECLIDIN/VILANTER(200-62.5-25 TRELEGY ELLIPTA) INAHLER IH SCH (10:16)
[2022-10-17] MEDS: FAMOTIDINE 20 MG TABLET PO SCH (10:16)
[2022-10-17] MEDS: ENOXAPARIN NA (PORCINE) 40 MG/0.4 ML DISP.SYRIN SQ SCH (10:16)
[2022-10-17] MEDS: amLODIPine BESYLATE 10 MG TABLET (FP) PO SCH (10:17)
[2022-10-17 10:19] VITALS: BP 118/79; PULSE 83; TEMP 98.2
== END 2022-10-17 15:24 | disposition home or self-care (01) | DRG 141 ==
LOC: JER 17:36 → JERBED 22:17 → J5S 10-14 12:53 → OBSVTOIN 10-16 11:35
PROVIDERS: ADMIT Internal Medicine; ATTEND Internal Medicine
DX: J45.41 Moderate persistent asthma with (acute) exacerbation (principal); Z68.41 Body mass index [BMI] 40.0-44.9, adult; I10 Essential (primary) hypertension; E66.01 Morbid (severe) obesity due to excess calories; E03.9 Hypothyroidism, unspecified; E78.5 Hyperlipidemia, unspecified; F32.A Depression, unspecified
CPT/HCPCS: 0241U-QW; 36415; 36600; 71045-TC-FY; 80048; 80053; 82803; 83735; 83880; 84100; 84484; 85025; 85027; 93005; 93010; 94150; 94640; 94761; 97116-GP; 97161-GP; 99291; G0378

== ENCOUNTER 2023-04-10 12:25 | Emergency (ER) | payer OTHER ==
[2023-04-10 12:42] VITALS: PULSE 72; BMI 37.3
[2023-04-10] MEDS ORDERED: LIDOCAINE 5% TOPICAL PATCH TP ONE (13:22)
[2023-04-10] MEDS ORDERED: ACETAMINOPHEN 325 MG TABLET (FP) PO ONE (13:23)
[2023-04-10] MEDS ORDERED: ACETAMINOPHEN 325 MG TABLET (FP) ONE (13:33)
[2023-04-10] MEDS ORDERED: LIDOCAINE 5% TOPICAL PATCH ONE (13:33)
[2023-04-10 15:30] LABS: PH,URINE 7.5 (5.0-8.0); URINE APPEARANCE CLEAR; URINE BILIRUBIN NEGATIVE (NEGATIVE); URINE COLOR YELLOW; URINE GLUCOSE (UA) NEGATIVE (NEGATIVE); URINE KETONE NEGATIVE (NEGATIVE); URINE LEUK ESTERASE NEGATIVE (NEGATIVE); URINE NITRITE NEGATIVE (NEGATIVE); URINE PROTEIN NEGATIVE (NEGATIVE); URINE UROBILINOGEN 0.2 mg/dL (0.2-1.0)
[2023-04-10 16:04] VITALS: BP 134/74; RESP 16; TEMP 98.3
[2023-04-10] MEDS ORDERED: LIDOCAINE PATCH REMOVAL MC ONE (22:00)
== END 2023-04-10 16:12 | disposition home or self-care (01) ==
LOC: JER 12:25
DX: M54.9 Dorsalgia, unspecified (principal); M25.552 Pain in left hip; N89.8 Other specified noninflammatory disorders of vagina; M25.551 Pain in right hip; R35.0 Frequency of micturition
CPT/HCPCS: 81003; 87086; 99283-25